=== PATIENT | female | born 1955 | race Caucasian/White ===

== ENCOUNTER → 2019-08-29 10:38 | Outpatient (CLI) | payer OTHER, SELFPAY ==
--- NOTE | 2019-08-29 | DI.US.S_ITS ---
PROCEDURE: US CAROTID DOPPLER BI INDICATIONS: LEFT BRUIT TECHNIQUE: Color and pulse Doppler interrogation was performed of both carotid systems, with image documentation and velocity measurements. COMPARISON: None. FINDINGS: Stenosis calculations are based on SRU (Society of Radiologists in Ultrasound) criteria. Right side: Brachial blood pressure: 153/79 mm Hg. Common carotid artery peak systolic velocity: 76 cm/sec. Internal carotid artery peak systolic velocity: 62 cm/sec. Internal carotid artery end diastolic velocity: 20 cm/sec. External carotid artery peak systolic velocity: 94 cm/sec. ICA/CCA peak systolic ratio: 0.8. Wahl scale imaging description: Minimal plaquing Percent internal carotid artery stenosis: No significant stenosis. Vertebral artery: Flow direction is antegrade. Left side: Brachial blood pressure: 155/73 mm Hg. Common carotid artery peak systolic velocity: 77 cm/sec. Internal carotid artery peak systolic velocity: 57 cm/sec. Internal carotid artery end diastolic velocity: 18 cm/sec. External carotid artery peak systolic velocity: 101 cm/sec. ICA/CCA peak systolic ratio: 0.7. Wahl scale imaging description: Minimal plaquing Percent internal carotid artery stenosis: No significant stenoses. Vertebral artery: Flow direction is antegrade. IMPRESSION: 1. No hemodynamic significant internal carotid artery stenosis. 2. Antegrade vertebral artery flow bilaterally. Dictated by: Daniel Grant M.D. on 08/29/2019 at 11:55 Approved by: Daniel Grant M.D. on 08/29/2019 at 11:56
== END ==
PROVIDERS: PCP Family Medicine; Visit Provider Family Medicine
DX: R09.89 Other specified symptoms and signs involving the circulatory and respiratory systems (principal)
CPT/HCPCS: 93880

== ENCOUNTER → 2019-12-06 13:40 | Outpatient (CLI) | payer OTHER, SELFPAY ==
--- NOTE | 2019-12-06 13:45 | DI.MG.S_ITS ---
BILATERAL DIGITAL SCREENING MAMMOGRAM 3D/2D WITH CAD: 12/06/2019 CLINICAL: Routine screening. Comparison is made to exams dated: 11/27/2017 mammogram, 05/20/2016 mammogram, and 01/11/2013 mammogram - [facility]. There are scattered fibroglandular elements in both breasts. Current study was also evaluated with a Computer Aided Detection (CAD) system. No significant masses, calcifications, or other findings are seen in either breast. There has been no significant interval change. IMPRESSION: NEGATIVE There is no mammographic evidence of malignancy. A 1 year screening mammogram is recommended. This exam was interpreted at Station ID: [id number]. NOTE: For mammograms, a report in lay terms will be sent to the patient. Approximately 15% of breast malignancies will not be visualized mammographically. In the management of a palpable breast mass, a negative mammogram must not discourage biopsy of a clinically suspicious lesion. Electronically Signed By: Chintan cantor/clay:12/06/2019 16:32:05 letter sent: Normal Exam ACR BI-RADS Category 1: Negative 3341F
== END ==
PROVIDERS: PCP Family Medicine; Referring Provider Family Medicine; Visit Provider Family Medicine
DX: Z12.31 Encounter for screening mammogram for malignant neoplasm of breast (principal)
CPT/HCPCS: 77063; 77067

== ENCOUNTER → 2020-02-26 09:48 | Outpatient (CLI) | payer OTHER, SELFPAY ==
[2020-02-26 10:20] LABS: BUN Creatinine Ratio 23.6 (6-22); Blood Urea Nitrogen 17 mg/dL (7-17); Estimated Glomerular Filt Rate > 60.0 mL/min (>60)
--- NOTE | 2020-02-26 11:05 | DI.CT.S_ITS ---
PROCEDURE: CT ABDOMEN PELVIS W CON INDICATIONS: Unspecified abdominal pain TECHNIQUE: After the administration of oral and intravenous contrast, 5 mm thick sections acquired from the diaphragms to the symphysis. 5 mm thick coronal and sagittal reformats were performed. For radiation dose reduction, the following was used: automated exposure control, adjustment of mA and/or kV according to patient size. COMPARISON: None. FINDINGS: Image quality: Excellent. ABDOMEN: Lung bases: Lung bases are clear. Heart size is normal. Solid organs: Liver is normal in size and enhancement. There is a small simple cyst adjacent to the anterior gallbladder fossa border within the liver parenchyma. Gallbladder appears normal. Biliary system is non-dilated. Pancreas enhances normally. Spleen is normal in size and enhancement. No adrenal nodules. Kidneys are normal in size and enhancement, without hydronephrosis. Peritoneum and bowel: Stomach, small bowel, and colon loops are normal in caliber and wall thickness. No free fluid or air. Nodes and vessels: No retroperitoneal or mesenteric adenopathy by size criteria. Centrally within the mesenteric root there is a small ovoid calcification seen on series 2 image 46 likely reflecting an old calcified lymph node . Aorta and inferior vena cava are normal in caliber. Miscellaneous: No ventral hernias. PELVIS: Genitourinary: Bladder wall thickness is normal. Prior hysterectomy. Miscellaneous: No inguinal hernias or adenopathy. Bones: No suspicious bony lesions. No vertebral body compression fractures. IMPRESSION: No underlying infection or neoplasm is found. Prior hysterectomy. Source of reported abdominal pain is not identified. Dictated by: Nick Coreas M.D. on 02/26/2020 at 11:53 Approved by: Nick Coreas M.D. on 02/26/2020 at 11:58
== END ==
PROVIDERS: PCP Family Medicine; Referring Provider Family Medicine; Visit Provider Family Medicine
DX: R10.9 Unspecified abdominal pain (principal); Z90.710 Acquired absence of both cervix and uterus
CPT/HCPCS: 36415; 74177; 82565; 84520; Q9967

== ENCOUNTER → 2020-08-11 16:10 | Outpatient (ROUT) | payer OTHER, SELFPAY ==
[2020-08-12 13:54] LABS: COVID19 Sendout Not Detected (Not Detect)
== END ==
PROVIDERS: PCP Family Medicine; Visit Provider Nurse Practitioner
DX: Z11.59 Encounter for screening for other viral diseases (principal)
CPT/HCPCS: 87635

== ENCOUNTER 2020-08-14 11:52 | Day surgery (SDC) | payer OTHER, SELFPAY ==
[2020-08-14] VITALS (8 sets, daily range): BP systolic 100–124; BP diastolic 53–81; PULSE 51–80; RESP 11–17; TEMP 36.6–37.2; O2SAT 96–99; BMI 34.8
--- NOTE | 2020-08-14 11:44 | PM.HP.1 ---
History of Present Illness History of Present Illness Date Patient Seen: 08/14/20 Time Patient Seen: 11:44 Chief complaint: SCREENING COLONOSCOPY Narrative: 64 year old female comes in today for consideration of a screening colonoscopy. Has had 4-5 lifetime colonoscopies, most recently: 03/19/10: Indicated for family history of colon polyps, family history of colon cancer, and personal history of colon polyps. Findings showed 5 small polyps between 1 and 2 mm in the rectosigmoid colon. One was snared and retrieved (hyperplastic) and others were fugurated. 08/21/2015: Indications as noted above, findings normal. There have been no lower GI symptoms suggesting disease such as change in bowel habits, bleeding, abdominal pain or anemia. As noted above, she does have a family history of colon cancer and colon polyps. Overall health issues have been stable, including no major cardiac events for at least 6 weeks. PCP: Dr. 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 Patient History Family & Social History Tobacco & Substance use: Smoking Status Former smoker Meds Home Medications and Allergies Home Medications Medication Instructions Recorded Confirmed Type CHOLECALCIFEROL (VITAMIN D) 2,000 units PO QDAY #0 02/25/13 08/05/19 History aspirin 81 mg PO QDAY #0 02/25/13 08/05/19 History atenolol 100 mg PO QDAY #0 02/25/13 08/05/19 History hydrochlorothiazide 12.5 mg PO QAM #30 02/25/13 08/05/19 Rx Allergies Allergy/AdvReac Type Severity Reaction Status Date / Time No Known Drug Allergies Allergy Unverified 08/05/19 13:26 Review of Systems Review of Systems ROS: Yes All systems reviewed with the patient and are negative except as otherwise documented Exam Narrative Exam Narrative: GENERAL: Alert and oriented, appearing stated age and in no acute distress. HEENT: Head normocephalic/atraumatic. Pupils equal, round, and reactive to light and accomodation. Extraocular muscles intact. Tympanic membranes clear. Nasal mucosa moist, septum midline. Oral mucosa moist, no lesions. Neck soft and supple, no lymphadenopathy. LUNGS: Clear to ausculation bilaterally, no wheezes, rhonchi or rales. CV: Normal S1 and S2 with regular rate and rhythm, no audible murmurs, rubs or gallops. ABDOMEN: Soft, non-tender, non-distended, no organomegaly. Positive bowel sounds. EXTREMITIES: No clubbing, cyanosis, or edema. NEURO: Cranial nerves II through XII grossly intact, no focal deficits. PSYCH: Alert and oriented x 3. SKIN: No concerning lesions. Assessment & Plan Assessment & Plan narrative: 1. History of colon polyps 2. Family history of colon cancer 3. Screening for colon cancer Plan for colonoscopy. The nature and character of the procedure as well as anticipated results were discussed. The possibility of not completing the procedure was also discussed. Possible complications including aspiration pneumonia, bleeding, perforation and reaction to medications either for sedation or preparation and missed lesions were discussed. Questions were answered and proceeding to the colonoscopy was elected. Informed consent signed. I sincerely appreciate the referral allowing me to participate in this patient's care. Please contact me with any questions or concerns.
--- NOTE | 2020-08-14 11:54 | P.OP.ENDO_ITS ---
Operative Date/Time/Diagnoses Date of procedure: 08/14/20 Procedure Notes SCOAP/Timeout: 1:03 p.m. Procedure in detail: ENDOSCOPIST: Akosua Martinez MD Sedation RN: Laci Skelton RN Sedation start time: 13:08 Sedation end time: 13:25 PROCEDURE: Colonoscopy INDICATIONS: 1. History of colon polyps 2. Family history of colon cancer 3. Screening for colon cancer MEDICATION: Levsin 0.125 mg sublingual, incremental doses of Versed and fentanyl until appropriate level sedation achieved. ASA CLASS: 2 CECAL WITHDRAWAL TIME: 10 minutes COMPLICATIONS: None. EXTENT OF PROCEDURE: Cecum. QUALITY OF PREP: Good with portions of liquid stool. PROCEDURE: Prior to insertion of the colonoscope, a digital rectal examination was accomplished with circumferential palpation of the distal rectal mucosa without significant findings being noted. The high-definition colonoscope was passed into the rectum in the usual fashion and advanced over to the cecum without difficulty. The ileocecal valve, appendiceal stoma, and medial wall all could b e inspected and no abnormalities were seen. ASCENDING COLON: As the colonoscope was withdrawn, care was taken to expose and inspect the haustral folds and no abnormalities were seen. HEPATIC FLEXURE: Normal, no polyps, diverticula or other abnormalities. TRANSVERSE COLON: Normal, no polyps, diverticula or other abnormalities. DESCENDING COLON: Normal, no polyps, diverticula or other abnormalities. SIGMOID COLON: Normal, no polyps, diverticula or other abnormalities. RECTUM: Normal. J maneuver was produced. There was no significant perianal disease. The J maneuver was broken. The remainder of the rectum was inspected and there was [] no external hemorrhoid disease. The scope was withdrawn. IMPRESSION: 1. Normal colonoscopy PLAN: 1. Secondary to family history colon cancer and personal history of colon polyps, repeat colonoscopy in 5 years. The possibility of a missed lesion including a malignancy has been discussed with the patient previously. Potential alarm symptoms have been discussed and should be reported immediately.
[2020-08-14] MEDS: HYOSCYAMINE 0.125 MG TABLET PO (12:16)
[2020-08-14] MEDS: LACTATED RINGERS 1,000 ML 200 ML IV (12:17)
[2020-08-14] MEDS: fentaNYL 250 MCG/5 ML INJ IV (13:08)
[2020-08-14] MEDS: MIDAZOLAM 5 MG/5 ML VIAL IV (13:08)
== END 2020-08-14 14:10 | disposition home or self-care (01) ==
PROVIDERS: PCP Family Medicine; Referring Provider Student in an Organized Health Care Education/Training Program; Visit Provider Student in an Organized Health Care Education/Training Program
PROC: 0DJD8ZZ Inspection of Lower Intestinal Tract, Via Natural or Artificial Opening Endoscopic (ICD-10-PCS; CPT 45378; principal; 2020-08-14 13:00)
DX: Z12.11 Encounter for screening for malignant neoplasm of colon (principal); Z86.010 Personal history of colon polyps; Z80.0 Family history of malignant neoplasm of digestive organs; I10 Essential (primary) hypertension; E78.5 Hyperlipidemia, unspecified
CPT/HCPCS: G0105; J2250; J3010

== ENCOUNTER → 2020-10-22 14:34 | Outpatient (CLI) | payer MEDICARE, SELFPAY ==
--- NOTE | 2020-10-22 | DI.RAD.S_ITS ---
PROCEDURE: XR KNEE RT 3V INDICATIONS: RIGHT KNEE PAIN TECHNIQUE: 3 views of the knee were acquired. COMPARISON: None. FINDINGS: Bones: No fracture. Scattered degenerative subchondral sclerosis and spurring. Mild narrowing of the medial lateral joint spaces. Soft tissues: Small joint effusion IMPRESSION: Mild right knee joint degeneration. Small joint effusion Dictated by: Jair Wood M.D. on 10/22/2020 at 15:17 Approved by: Jair Wood M.D. on 10/22/2020 at 15:18
== END ==
PROVIDERS: PCP Family Medicine; Referring Provider Family Medicine; Visit Provider Family Medicine
DX: M25.561 Pain in right knee (principal); M17.11 Unilateral primary osteoarthritis, right knee; M25.461 Effusion, right knee
CPT/HCPCS: 73562

== ENCOUNTER → 2020-12-11 11:43 | Outpatient (CLI) | payer MEDICARE, SELFPAY ==
--- NOTE | 2020-12-11 11:44 | DI.MG.S_ITS ---
BILATERAL DIGITAL SCREENING MAMMOGRAM 3D/2D WITH CAD: 12/11/2020 CLINICAL: Routine screening. Comparison is made to exams dated: 12/06/2019 mammogram, 11/27/2017 mammogram, and 05/20/2016 mammogram - [facility]. There are scattered fibroglandular elements in both breasts. Current study was also evaluated with a Computer Aided Detection (CAD) system. No significant masses, calcifications, or other findings are seen in either breast. There has been no significant interval change. IMPRESSION: NEGATIVE There is no mammographic evidence of malignancy. A 1 year screening mammogram is recommended. This exam was interpreted at Station ID: [id number]. NOTE: For mammograms, a report in lay terms will be sent to the patient. Approximately 15% of breast malignancies will not be visualized mammographically. In the management of a palpable breast mass, a negative mammogram must not discourage biopsy of a clinically suspicious lesion. Electronically Signed By: Chintan Junior M.D. at/clay:12/11/2020 12:37:28 letter sent: Normal Exam ACR BI-RADS Category 1: Negative 3341F
== END ==
PROVIDERS: PCP Family Medicine; Referring Provider Family Medicine; Visit Provider Family Medicine
DX: Z12.31 Encounter for screening mammogram for malignant neoplasm of breast (principal)
CPT/HCPCS: 77063; 77067

== ENCOUNTER → 2021-12-10 10:29 | Outpatient (CLI) | payer MEDICARE, SELFPAY | PROVIDERS: PCP Family Medicine; Visit Provider Nurse Practitioner Family | DX: J02.9 Acute pharyngitis, unspecified (principal) | CPT/HCPCS: 87070 ==

== ENCOUNTER → 2021-12-23 13:14 | Outpatient (CLI) | payer MEDICARE, SELFPAY ==
--- NOTE | 2021-12-23 | DI.MG.S_ITS ---
BILATERAL DIGITAL SCREENING MAMMOGRAM 3D/2D WITH CAD: 12/23/2021 CLINICAL: Routine screening. Comparison is made to exams dated: 12/11/2020 mammogram, 12/06/2019 mammogram, 11/27/2017 mammogram, 05/20/2016 mammogram, and 01/17/2013 mammogram - [facility]. There are scattered fibroglandular elements in both breasts. Current study was also evaluated with a Computer Aided Detection (CAD) system. No significant masses, calcifications, or other findings are seen in either breast. There has been no significant interval change. IMPRESSION: NEGATIVE There is no mammographic evidence of malignancy. A 1 year screening mammogram is recommended. This exam was interpreted at Station ID: [id number]. NOTE: For mammograms, a report in lay terms will be sent to the patient. Approximately 15% of breast malignancies will not be visualized mammographically. In the management of a palpable breast mass, a negative mammogram must not discourage biopsy of a clinically suspicious lesion. Electronically Signed By: Giacomo alvarez/clay:12/23/2021 14:30:25 letter sent: Normal Exam ACR BI-RADS Category 1: Negative 3341F
== END ==
PROVIDERS: PCP Family Medicine; Referring Provider Family Medicine; Visit Provider Family Medicine
DX: Z12.31 Encounter for screening mammogram for malignant neoplasm of breast (principal)
CPT/HCPCS: 77063; 77067

== ENCOUNTER → 2022-05-23 13:47 | Outpatient (CLI) | payer MEDICARE, SELFPAY | PROVIDERS: PCP Family Medicine; Referring Provider Family Medicine; Visit Provider Family Medicine | DX: Z78.0 Asymptomatic menopausal state (principal); Z13.820 Encounter for screening for osteoporosis; M85.89 Other specified disorders of bone density and structure, multiple sites; Z90.710 Acquired absence of both cervix and uterus | CPT/HCPCS: 77080 ==

== ENCOUNTER → 2022-12-12 08:14 | Outpatient (CLI) | payer MEDICARE, SELFPAY ==
--- NOTE | 2022-12-12 | DI.MRI.S_ITS ---
PROCEDURE: MR STROKE Pre- and post-contrast brain MRI, non-contrast brain MR angiogram, pre- and postcontrast neck MR angiogram INDICATIONS: Syncope and collapse/STROKE PROTOCOL TECHNIQUE: Brain: Noncontrast axial T1 spin echo, axial T2 fast spin echo, sagittal and axial FLAIR, coronal T2 fast spin echo, axial gradient echo, axial diffusion and ADC through the brain. After the administration of contrast, axial 3D VIBE of the cranial vasculature and brain. Brain MRA: Non-contrast 3-D time of flight MR angiogram, with multiple uwabvik-wnxpfkeyu-ordixaqwrj (MIP) reformats performed. Neck MRA: Axial and sagittal TruFISP through the neck. Coronal dynamic MR angiogram during administration of contrast in the arterial and venous phases, with 3-dimenstional qqyguko-vyommoyog-ytkmzkavup (MIP) reformats constructed from subtraction images. COMPARISON: [facility], , CAROTID DOPPLER , 08/29/2019, 11:03. FINDINGS: Image quality: Excellent. BRAIN: CSF spaces: Ventricles are normal in size and shape. Basal cisterns are patent. No extra-axial fluid collections. Brain: No intracranial bleeds or mass effects. Wahl-white matter interface is normal. Diffusion weighted images show no acute ischemic insults. Brainstem appears normal. Normal intravascular flow voids are present. No abnormal intracranial enhancement. Note is made of age-appropriate brain parenchymal volume loss and chronic small vessel ischemic changes. Skull and face: Calvarial marrow signal is normal. Orbits appear normal. Sinuses: Sinuses and mastoids are clear. BRAIN MR ANGIOGRAM: Anterior circulation: Intracranial internal carotid arteries are normal in size and enhancement. The flow within the paired anterior cerebral arteries is normal and symmetric. The flow within the middle cerebral arteries is normal and symmetric. The anterior communicating artery is seen. No stenoses, occlusions, or aneurysms. Posterior circulation: The left V4 segment is within normal limits. The right V4 segment largely terminates in the right posterior inferior cerebellar artery. There is a normal appearing basilar artery. There is a prominent right posterior communicating artery seen, with an accompanying diminutive right P1 segment. This is attributed to a type origin of the right posterior cerebral artery, which is considered to be a normal developmental variant of typically no clinical consequence. The flow within the posterior cerebral arteries is normal and symmetric. No stenoses, occlusions, or aneurysms. NECK MR ANGIOGRAM: Carotids: Great vessels demonstrate a conventional anatomy as they arise from the aortic arch. The origins of the common carotid arteries appear patent. The calibers and courses of both common carotid arteries are normal. The bifurcation regions appear normal bilaterally. The internal carotid arteries demonstrate normal course and caliber. Posterior circulation: The origins of the vertebral arteries appear patent. More superior portions of both vertebral arteries demonstrate normal course and caliber, and join to form a normal appearing basilar artery. Miscellaneous: Subclavian arteries appear patent. Pre-contrast images through the neck show no soft tissue abnormalities. IMPRESSION: BRAIN MRI: No masses or abnormal enhancement can be seen. No findings of acute or subacute infarction can be seen. Note is made of age-appropriate brain parenchymal volume loss and chronic small vessel ischemic changes. BRAIN MR ANGIOGRAM: No significant intracranial arterial abnormality is seen. Tqiyei-yt-Bgymzh developmental anomalies are incidentally noted. NECK MR ANGIOGRAM: Within the arteries of the neck, no hemodynamically significant stenosis can be seen. Dictated by: Jose Carroll M.D. on 12/12/2022 at 9:46 Approved by: Jose Carroll M.D. on 12/12/2022 at 9:50
== END ==
PROVIDERS: PCP Family Medicine; Referring Provider Family Medicine; Visit Provider Family Medicine
DX: R55 Syncope and collapse (principal)
CPT/HCPCS: 70548; 70553

== ENCOUNTER → 2022-12-26 12:51 | Outpatient (CLI) | payer MEDICARE, SELFPAY ==
--- NOTE | 2022-12-26 | DI.MG.S_ITS ---
BILATERAL DIGITAL SCREENING MAMMOGRAM 3D/2D WITH CAD: 12/26/2022 CLINICAL: Routine screening. Comparison is made to exams dated: 12/23/2021 mammogram, 12/11/2020 mammogram, and 12/06/2019 mammogram - [facility]. There are scattered areas of fibroglandular density in both breasts (category b / 25%-50% glandular tissue). Current study was also evaluated with a Computer Aided Detection (CAD) system. No significant masses, calcifications, or other findings are seen in either breast. There has been no significant interval change. IMPRESSION: NEGATIVE There is no mammographic evidence of malignancy. A 1 year screening mammogram is recommended. Based on the Tyrer Cuzick model (a risk assessment model) the patient's lifetime risk is 4.5% and her 10 year risk is 2.6%. According to the ACR, ACS, and NCCN guidelines, an annual breast MRI exam along with mammogram is recommended if the patient's lifetime risk is 20% or greater. This exam was interpreted at Station ID: [id number]. NOTE: For mammograms, a report in lay terms will be sent to the patient. Approximately 15% of breast malignancies will not be visualized mammographically. In the management of a palpable breast mass, a negative mammogram must not discourage biopsy of a clinically suspicious lesion. Electronically Signed By: Hayden beck/clay:12/26/2022 13:28:41 letter sent: Normal Exam ACR BI-RADS Category 1: Negative 3341F
== END ==
PROVIDERS: PCP Family Medicine; Referring Provider Family Medicine; Visit Provider Family Medicine
DX: Z12.31 Encounter for screening mammogram for malignant neoplasm of breast (principal)
CPT/HCPCS: 77063; 77067

== ENCOUNTER → 2024-01-05 13:01 | Outpatient (CLI) | payer MEDICARE, SELFPAY ==
--- NOTE | 2024-01-05 13:03 | DI.MG.S_ITS ---
BILATERAL DIGITAL SCREENING MAMMOGRAM 3D/2D WITH CAD: 01/05/2024 CLINICAL: Routine screening. Comparison is made to exams dated: 12/26/2022 mammogram, 12/23/2021 mammogram, and 12/11/2020 mammogram - [facility]. There are scattered areas of fibroglandular density in both breasts (category b / 25%-50% glandular tissue). Current study was also evaluated with a Computer Aided Detection (CAD) system. No significant masses, calcifications, or other findings are seen in either breast. There has been no significant interval change. IMPRESSION: NEGATIVE There is no mammographic evidence of malignancy. A 1 year screening mammogram is recommended. Based on the Tyrer Cuzick model (a risk assessment model) the patient's lifetime risk is 4.3% and her 10 year risk is 2.7%. According to the ACR, ACS, and NCCN guidelines, an annual breast MRI exam along with mammogram is recommended if the patient's lifetime risk is 20% or greater. This exam was interpreted at Station ID: [id number]. NOTE: For mammograms, a report in lay terms will be sent to the patient. Approximately 15% of breast malignancies will not be visualized mammographically. In the management of a palpable breast mass, a negative mammogram must not discourage biopsy of a clinically suspicious lesion. Electronically Signed By: Belkis sandoval/clay:01/05/2024 15:30:51 letter sent: Normal Exam ACR BI-RADS Category 1: Negative 3341F
== END ==
PROVIDERS: PCP Family Medicine; Referring Provider Family Medicine; Visit Provider Family Medicine
DX: Z12.31 Encounter for screening mammogram for malignant neoplasm of breast (principal); R92.323 Mammographic fibroglandular density, bilateral breasts
CPT/HCPCS: 77063; 77067

== ENCOUNTER → 2024-02-13 16:00 | Outpatient (CLI) | payer MEDICARE, SELFPAY ==
--- NOTE | 2024-02-13 17:46 | DIAB.MNT ---
Initial Diabetes Medical Nutrition Therapy Assessment Name: Aga Kurtz Date: 02/13/24 Time: 430-530p Dx: Type II Diabetes Aga presents for initial Dm visit virtually using [facility]. She agrees to receiving care virtually. Yesterday hgA1c 6.2%, same as last labs. No PCP f/u until Oct 2024. FH of DM: none (mother h/o prediabetes) Questions about how much carbs or protein for meals or snacks. Needs education about DM pathophysiology. -30# since April. Food is boring to her now, [facility] cook. Diet Recall: Wake 430-5a Bed: 8p Coffee black 8-10a: 2 eggs or avocado on toast ww 10a-12p: turkey, cheese with sliced apple 2-3p: almonds, sunflower seeds 6p: plain burger OR 1.5c pasta with sauce and salad Beverages: coffee x 2c, water 64oz, ETOH wine 2 glasses/day, occasionally sf soda Anthropometrics: Ht: Wt: Weight history: Physical Activity: stretching in the morning 20 min, 1-1.5 mi during the day (30 min) Self-Monitoring Blood Glucose: None. Diabetes Medications: None Pertinent Labs: HgA1c: 7.2% 04/2023 6.3% 07/2023 6.2% 10/2023 6.2% 01/2024 reported Past Medical History: T2Dm, HTN Nutrition Rx: Carbohydrates: Meal:30-45g Snack:15-30g Nutrition Diagnosis: - Food and Nutrition related knowledge deficit r/t no previous DM or MNT education and new dx last year aeb hgA1c and pt report- new Intervention: This participant was very receptive. Provided appropriate educational handouts. Discussed the following topics: Completed intake assessment. Discussed barriers to care. Pathophysiology of T2DM HgA1c, its correlation to blood glucose numbers, and rationale for goal Brief overview of potential for SMBG Plate Method, impact of macronutrients on blood sugar, meal timing, carbohydrate counting, pairing macronutrients and spreading out carbohydrates for better blood glucose management Recommended servings for carbohydrates at meals and snacks Heart health nutrition Brainstormed appropriate meal plan based on food preferences Role of physical activity Brief eating out tips Hydration Created SMART goals for patient self-care and success. Goals: Pair CHO and protein Keep Cho to 1 c at meals Try to eat q 3-4 hours Next visit discuss label reading Follow-up: PRICILLA BASS follow-up in 1 month Bettie Talley RDN, [facility] Certified Diabetes Care and Tractor Mechanic Apprentice P: [phone] Thank you for this referral
== END ==
PROVIDERS: PCP Family Medicine; Referring Provider Family Medicine
DX: E11.9 Type 2 diabetes mellitus without complications (principal); Z71.3 Dietary counseling and surveillance
CPT/HCPCS: 97802

== ENCOUNTER → 2024-04-17 11:23 | Outpatient (CLI) | payer MEDICARE, SELFPAY ==
--- NOTE | 2024-05-07 11:25 | DIAB.MNTFU ---
Follow-up Diabetes Medical Nutrition Therapy Assessment Name: Aga Kurtz Date: 04/17/24 Time: 335-450 Dx: Type II Diabetes Aga presents for DM follow-up virtually using Portal. No sugar cravings anymore. Next hga1c in July No SMBG Pairing CHO and protein Choosing more fish over beef Eating salads and roasted veggies Feeling more comfortable food choices Avoiding bread Offered label reading education that she had previously wanted to review today, but states she feels things are going well and she does not need this at this time. Diet Recall: Wake 430-5 Coffee black B: fruit, yogurt smoothie with protein powder Sn: handful berries and nuts L: Tuna on lettuce +/- carrots and pb D: Salad, other veggie, burger roger or salmon with barton Occasional pasta, ie spaghetti or pasta salad x 1.5c ETOH: 2 glasses wine Water: +/-64oz Coffee Physical Activity: slowed down due to ?frozen shoulder?. In PT 1x per week. 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 Missing her walks, but plans to get back to it. . Self-Monitoring Blood Glucose: None. Diabetes Medications: None Pertinent Labs: HgA1c: 7.2% 04/2023 6.3% 07/2023 6.2% 10/2023 6.2% 01/2024 reported Past Medical History: T2Dm, HTN Nutrition Rx: Carbohydrates: Meal:30-45g Snack:15-30g Nutrition Diagnosis: - Food and Nutrition related knowledge deficit r/t no previous DM or MNT education and new dx last year aeb hgA1c and pt report- new Intervention: This participant was very receptive. Provided appropriate educational handouts. Discussed the following topics: Completed intake assessment. Discussed barriers to care. Review of diet changes and recs for CHO portions Discussed importance of sustainability of diet changes. Reviewed ETOH recs Created SMART goals for patient self-care and success. Goals: Pair CHO and protein- met Keep Cho to 1 c at meals - in progress Try to eat q 3-4 hours - met Follow-up: PRICILLA BASS follow-up prn per pt request. States she will call or message if needed. Bettie Talley, PRICILLA, KALI Certified Diabetes Care and [employer] Out [employer] Operator P: [phone] Thank you for this referral
== END ==
LOC: DIET 05-07 11:23
PROVIDERS: PCP Family Medicine; Referring Provider Family Medicine
DX: E11.9 Type 2 diabetes mellitus without complications (principal); Z71.3 Dietary counseling and surveillance
CPT/HCPCS: 97803

== ENCOUNTER → 2025-01-16 13:50 | Outpatient (CLI) | payer OTHER, SELFPAY ==
--- NOTE | 2025-01-16 13:52 | DI.MG.S_ITS ---
MM screening mammo BI: 01/16/2025. BI-RADS: 1 CLINICAL: 69-year old female for bilateral screening mammogram. Tyrer-Cuzick lifetime risk of 2.7%. No personal or first-degree family history of breast cancer. PRIOR EXAMS 01/05/2024, 12/26/2022, 12/23/2021, 12/11/2020, 12/06/2019, 11/27/2017, 05/20/2016. MAMMOGRAPHY TECHNIQUE: 2D and 3D (tomosynthesis) digital mammographic views obtained, with additional images as needed for full coverage. Current study was also evaluated with a Computer Aided Detection (CAD) system. DENSITY B. There are scattered areas of fibroglandular density. MAMMOGRAPHY FINDINGS Bilateral: No suspicious mass, asymmetry, microcalcification, or other abnormality seen. No significant change from comparison. IMPRESSION: * No evidence of malignancy. RECOMMENDATIONS Bilateral * Annual screening mammography. OVERALL ASSESSMENT CATEGORY BI-RADS-1: Negative. The [employer] recommends annual screening mammography beginning at age 40 for women with average risk of breast cancer. ELECTRONICALLY SIGNED: Jane Medellin M.D. on 01/16/2025 at 04:38:31 PM PT Interpreting Station ID: [id number]
== END ==
PROVIDERS: PCP Family Medicine; Referring Provider Family Medicine; Visit Provider Family Medicine
DX: Z12.31 Encounter for screening mammogram for malignant neoplasm of breast (principal)
CPT/HCPCS: 77063; 77067

== ENCOUNTER → 2025-01-24 08:10 | Outpatient (ROUT) | payer OTHER, SELFPAY ==
[2025-01-24 08:22] LABS: Prothrombin Time 11.7 SECONDS (9.4-12.5)
== END ==
PROVIDERS: PCP Family Medicine; Visit Provider Family Medicine
DX: Z01.818 Encounter for other preprocedural examination (principal); M25.361 Other instability, right knee
CPT/HCPCS: 85610

== ENCOUNTER 2025-07-07 07:30 | Outpatient (RCR) | payer OTHER, SELFPAY ==
--- NOTE | 2025-04-15 18:01 | PT.OIE ---
Addendum entered and electronically signed by Aissatou Maritnez, PT 04/15/25 18:12: PT direct supervision and direction to student PT Natalie Crowder throughout session Original Note: Current Diagnoses Unilateral primary osteoarthritis, right knee (04/15/25) Osteoarthritis of knee, unspecified (04/15/25) Visit Care Team Role Provider Type Emerson Boyd MD Family Provider Physician Primary Care Provider Specialty: Family Practice Address: [facility], [address], [place], [address] Email: [email or web address] Esvin Lopez MD Attending Provider Non-Staff Referring Provider Specialty: Orthopedic Surgery Address: [address] [place] [address], [address], [place], [address] Email: Physical Therapy Initial Evaluation PT-OP-A Visit Information Start: 04/14/25 13:32 Freq: Status: Active Protocol: Document 04/15/25 11:29 GG (Rec: 04/15/25 12:41 GG [id number]) Out-Patient Physical Therapy Visit Information Visit Information Visit Type Initial Evaluation Visit Start Time 11:34 Visit Stop Time 12:24 Visit Number 1 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 Initially had extension Condition brace for 1 week. Used walker after and will use it occ when going long distances, but uses a cane in home and walking short distances. Travels from [facility]. Currently using Tylenol and has been doing so the past 2 days. Has an ice machine that has been really helpful . Used a CPM machine for the first 2 weeks following and says she could get to 110 deg. Has a friend in town to help out for another couple weeks. She also lives w / her but he is unable to help w/ heavy lifting . 13 stairs inside, 3-4 at entryway, bedroom/shower in basement. Notes that she has difficulty stepping into/ out of tub shower and tried to support using shower charley . Treatment Goals Patient/Caregiver walking, navigating terrain around house, getting into/ Goals out of tub shower PT-OP-C Subjective Start: 04/14/25 13:32 Freq: Status: Active Protocol: Document 04/15/25 11:29 GG (Rec: 04/15/25 12:41 GG [id number]) Patient Questionnaires Lower Extremity Functional Scale LEFS Score 38 PT-OP-J Posture/Palpation/Skin Start: 04/14/25 13:32 Freq: Status: Active Protocol: Document 04/15/25 11:29 GG (Rec: 04/15/25 12:41 GG [id number]) Skin Assessment Other Assessments Skin Assessment vertical scar along anterior R knee about 10 and Comments another 1/2 scar just inferior to tibial tuberosity. healing better. some swelling present around knee and into ankle. some bruising at inferior medial knee, medial ankle, anterior/medial hip PT-OP-K Range of Motion Start: 04/14/25 13:32 Freq: Status: Active Protocol: Document 04/15/25 11:29 GG (Rec: 04/15/25 12:41 GG [id number]) Knee Goniometric Range of Motion Knee Right Flexion Active ( 95 degrees) Flexion Passive ( 98 degrees) Extension Active ( 4 degrees) Comments lacking extension to neutral PT-OP-M Strength Start: 04/14/25 13:32 Freq: Status: Active Protocol: Document 04/15/25 11:29 GG (Rec: 04/15/25 12:41 GG [id number]) Hip Strength Hip Manual Muscle Testing Right Flexion (L2) 4 Good Abduction 4 Good Adduction 3 Fair External Rotation 4+ Good+ Internal Rotation 4+ Good+ Comments extension n/t positioning Left Flexion (L2) 4+ Good+ Abduction 4- Good- Adduction 4 Good External Rotation 4+ Good+ Internal Rotation 5 Normal Comments extension n/t positioning Knee Strength Knee Manual Muscle Testing Right Flexion (S2) 3+ Fair+ Extension (L3) 4 Good Comments pain w/ extension Left Flexion (S2) 5 Normal Extension (L3) 5 Normal Ankle/Foot Strength Ankle and Foot Manual Muscle Testing Right Dorsiflexion (L4) 4+ Good+ Left Dorsiflexion (L4) 5 Normal PT-OP-Q Treatments Start: 04/14/25 13:32 Freq: Status: Active Protocol: Document 04/15/25 11:29 GG (Rec: 04/15/25 13:33 GG [id number]) Therapeutic Exercises Supine Exercises SAQ Supine Exercise Name on foam roller Side right Reps/Minutes 5x stretch Supine Exercise Name knee extension stretch; foot on towel w/ quad set Side right Reps/Minutes 20s heel slides Side right Reps/Minutes 5x w/ 5s hold at top SLR Supine Exercise Name hold quad set throughout Side right Reps/Minutes 5x ankle pumps Reps/Minutes 15x Sitting Exercises knee flexion Sitting Exercise AAROM w/ other foot Name Reps/Minutes 3x6s hold sliding fwd Sitting Exercise passive knee flexion by scooting fwd w/ feet on ground Name Reps/Minutes 3x6s hold Standing Exercises TKE Resistance L1 band PT-OP-T Assessment and Plan Start: 04/14/25 13:32 Freq: Status: Active Protocol: Document 04/15/25 11:29 GG (Rec: 04/15/25 12:41 GG [id number]) Physical Therapy Assessment Rehab Potential Rehabilitation Good Potential Evaluation Complexity Number of Personal 3 or More Factors/ Comorbidities Number of Body 3 Systems Impaired Clinical Evolving Presentation at Evaluation Impairments Impairments Activity Tolerance,Balance,Coordination,Functional Activities,Functional Mobility,Gait,Pain,ROM,Soft Tissue Mobility,Strength Goals activity Short Term Goal (STG Pt will be able to walk w/ her normal gait pattern w/o ) AD. STG Duration 05/30/25 Penitentiary Goal (LTG) Pt will be able to walk at least 7000 steps/day to match prior level of function. Pt will be able to walk on uneven terrain w/o pain exceeding 2/10. LTG Duration 07/08/25 strength Short Term Goal (STG Pt will be independent in HEP. ) STG Duration 05/30/25 Cna Caregiver Goal (LTG) Pt will score at least a 4+/5 on BLE MMTs for improved strength and ability to walk. LTG Duration 07/08/25 ROM Short Term Goal (STG Pt will measure at least 115 deg of R knee flexion for ) better ability to step into and out of the tub shower. STG Duration 05/30/25 Penitentiary Goal (LTG) Pt will measure at least 130 deg of R knee flexion for better ability to use stairs and biking. LTG Duration 07/08/25 LEFS Impairment 38 Short Term Goal (STG Pt will score at least a 50 on LEFS to show improved ) function. STG Duration 05/30/25 Penitentiary Goal (LTG) Pt will score at least a 60 on LEFS to show improved function. LTG Duration 07/08/25 Assessment Summary Assessment Aga presents to PT s/p R TKA with associated pain, reduced ROM and strength. Pt would benefit from skilled PT to improve ROM and strength while also reducing pain so the patient can better perform functional activities including self-hygiene, navigating stairs and difficult terrain. Physical Therapy Plan Frequency and Duration Frequency of 1-2x/week Treatment Duration of 12 treatment (weeks) Plan of Care Start 04/15/25 Date Plan of Care End 07/08/25 Date Therapeutic Interventions Therapeutic Balance Training,Coordination Training,Gait Training, Interventions Home Exercise Program,Joint Mobilizations,Manual Therapy,Neuromuscular Re-education,Patient/Caregiver Education,Self-Care/Home Management,Soft Tissue Mobilization,Taping,Therapeutic Activities,Therapeutic Exercises Modalities Cold Pack/Ice Massage,Electric Stimulation,Infrared Therapy Next Visit Focus/Plan Next Note Type Treatment Note Next Visit Plan cont w/ HEP and progress as able, manual for swelling, knee ROM, try stepper
--- NOTE | 2025-04-15 18:02 | PT.OPPOC ---
Physical, Occupational & Speech Therapy At [facility] Current Diagnoses Unilateral primary osteoarthritis, right knee (04/15/25) Osteoarthritis of knee, unspecified (04/15/25) Visit Care Team Role Provider Type Emerson Boyd MD Family Provider Physician Primary Care Provider Specialty: Family Practice Address: [facility], [address], [place], [address] Email: [email or web address] Esvin Lopez MD Attending Provider Non-Staff Referring Provider Specialty: Orthopedic Surgery Address: [address] [place] [address], [address], [place], [address] Email: Plan Of Care PT-OP-B Current Condition Start: 04/14/25 13:32 Freq: Status: Active Protocol: Document 04/15/25 11:29 GG (Rec: 04/15/25 12:41 GG [id number]) Current Condition History of Current Condition Onset Date 03/27/25 Current Complaints R knee pain; s/p TKA History of Current No complications from surgery. Initially had extension Condition brace for 1 week. Used walker after and will use it occ when going long distances, but uses a cane in home and walking short distances. Travels from [facility]. Currently using Tylenol and has been doing so the past 2 days. Has an ice machine that has been really helpful . Used a CPM machine for the first 2 weeks following and says she could get to 110 deg. Has a friend in town to help out for another couple weeks. She also lives w / her but he is unable to help w/ heavy lifting . 13 stairs inside, 3-4 at entryway, bedroom/shower in basement. Notes that she has difficulty stepping into/ out of tub shower and tried to support using shower charley . Treatment Goals Patient/Caregiver walking, navigating terrain around house, getting into/ Goals out of tub shower PT-OP-T Assessment and Plan Start: 04/14/25 13:32 Freq: Status: Active Protocol: Document 04/15/25 11:29 GG (Rec: 04/15/25 12:41 GG [id number]) Physical Therapy Assessment Rehab Potential Rehabilitation Good Potential Evaluation Complexity Number of Personal 3 or More Factors/ Comorbidities Number of Body 3 Systems Impaired Clinical Evolving Presentation at Evaluation Impairments Impairments Activity Tolerance,Balance,Coordination,Functional Activities,Functional Mobility,Gait,Pain,ROM,Soft Tissue Mobility,Strength Goals activity Short Term Goal (STG Pt will be able to walk w/ her normal gait pattern w/o ) AD. STG Duration 05/30/25 Correction Goal (LTG) Pt will be able to walk at least 7000 steps/day to match prior level of function. Pt will be able to walk on uneven terrain w/o pain exceeding 2/10. LTG Duration 07/08/25 strength Short Term Goal (STG Pt will be independent in HEP. ) STG Duration 05/30/25 Correction Goal (LTG) Pt will score at least a 4+/5 on BLE MMTs for improved strength and ability to walk. LTG Duration 07/08/25 ROM Short Term Goal (STG Pt will measure at least 115 deg of R knee flexion for ) better ability to step into and out of the tub shower. STG Duration 05/30/25 Correction Goal (LTG) Pt will measure at least 130 deg of R knee flexion for better ability to use stairs and biking. LTG Duration 07/08/25 LEFS Impairment 38 Short Term Goal (STG Pt will score at least a 50 on LEFS to show improved ) function. STG Duration 05/30/25 Correction Goal (LTG) Pt will score at least a 60 on LEFS to show improved function. LTG Duration 07/08/25 Assessment Summary Assessment Aag presents to PT s/p R TKA with associated pain, reduced ROM and strength. Pt would benefit from skilled PT to improve ROM and strength while also reducing pain so the patient can better perform functional activities including self-hygiene, navigating stairs and difficult terrain. Physical Therapy Plan Frequency and Duration Frequency of 1-2x/week Treatment Duration of 12 treatment (weeks) Plan of Care Start 04/15/25 Date Plan of Care End 07/08/25 Date Therapeutic Interventions Therapeutic Balance Training,Coordination Training,Gait Training, Interventions Home Exercise Program,Joint Mobilizations,Manual Therapy,Neuromuscular Re-education,Patient/Caregiver Education,Self-Care/Home Management,Soft Tissue Mobilization,Taping,Therapeutic Activities,Therapeutic Exercises Modalities Cold Pack/Ice Massage,Electric Stimulation,Infrared Therapy Next Visit Focus/Plan Next Note Type Treatment Note Next Visit Plan cont w/ HEP and progress as able, manual for swelling, knee ROM, try stepper Plan of Care Dates Plan of Care Start Date 04/15/25 Plan of Care End Date 07/08/25 Electronically Signed by: Natalie Crowder 04/15/25 4732 If you are in agreement with this Plan of Care, please return a signed and dated copy. I have reviewed this Plan of Care and certify that the skilled therapy services above are required to meet the patient?s needs. Physician Signature Date Printed Name and Credentials Clinical Instructor Signature Printed Name and Credentials
--- NOTE | 2025-04-21 13:51 | PT.OTN ---
Current Diagnoses Unilateral primary osteoarthritis, right knee (04/21/25) Osteoarthritis of knee, unspecified (04/21/25) Physical Therapy Treatment Note PT-OP-A Visit Information Start: 04/14/25 13:32 Freq: Status: Active Protocol: Document 04/21/25 13:02 SP (Rec: 04/21/25 13:51 SP [id number]) Out-Patient Physical Therapy Visit Information Visit Information Visit Type Treatment Note Visit Start Time 13:02 Visit Stop Time 13:51 Visit Number 2 Number of TOOL PROGRAMMER Visits 1 Precautions Precautions s/p TKA 03/27/25 PT-OP-B Current Condition Start: 04/14/25 13:32 Freq: Status: Active Protocol: Document 04/15/25 11:29 GG (Rec: 04/15/25 12:41 GG [id number]) Current Condition History of Current Condition Onset Date 03/27/25 Current Complaints R knee pain; s/p TKA History of Current No complications from surgery. Initially had extension Condition brace for 1 week. Used walker after and will use it occ when going long distances, but uses a cane in home and walking short distances. Travels from [facility]. Currently using Tylenol and has been doing so the past 2 days. Has an ice machine that has been really helpful . Used a CPM machine for the first 2 weeks following and says she could get to 110 deg. Has a friend in town to help out for another couple weeks. She also lives w / her but he is unable to help w/ heavy lifting . 13 stairs inside, 3-4 at entryway, bedroom/shower in basement. Notes that she has difficulty stepping into/ out of tub shower and tried to support using shower charley . Treatment Goals Patient/Caregiver walking, navigating terrain around house, getting into/ Goals out of tub shower PT-OP-C Subjective Start: 04/14/25 13:32 Freq: Status: Active Protocol: Document 04/21/25 13:02 SP (Rec: 04/21/25 13:51 SP [id number]) OP-PT Subjective Patient Comments Patient Comments Pt reports using her ice machine, post op HEP. Arrived with use SPC in LUE good patterning. PT-OP-J Posture/Palpation/Skin Start: 04/14/25 13:32 Freq: Status: Active Protocol: Document 04/15/25 11:29 GG (Rec: 04/15/25 12:41 GG [id number]) Skin Assessment Other Assessments Skin Assessment vertical scar along anterior R knee about 10 and Comments another 1/2 scar just inferior to tibial tuberosity. healing better. some swelling present around knee and into ankle. some bruising at inferior medial knee, medial ankle, anterior/medial hip PT-OP-K Range of Motion Start: 04/14/25 13:32 Freq: Status: Active Protocol: Document 04/15/25 11:29 GG (Rec: 04/15/25 12:41 GG [id number]) Knee Goniometric Range of Motion Knee Right Flexion Active ( 95 degrees) Flexion Passive ( 98 degrees) Extension Active ( 4 degrees) Comments lacking extension to neutral PT-OP-M Strength Start: 04/14/25 13:32 Freq: Status: Active Protocol: Document 04/15/25 11:29 GG (Rec: 04/15/25 12:41 GG [id number]) Hip Strength Hip Manual Muscle Testing Right Flexion (L2) 4 Good Abduction 4 Good Adduction 3 Fair External Rotation 4+ Good+ Internal Rotation 4+ Good+ Comments extension n/t positioning Left Flexion (L2) 4+ Good+ Abduction 4- Good- Adduction 4 Good External Rotation 4+ Good+ Internal Rotation 5 Normal Comments extension n/t positioning Knee Strength Knee Manual Muscle Testing Right Flexion (S2) 3+ Fair+ Extension (L3) 4 Good Comments pain w/ extension Left Flexion (S2) 5 Normal Extension (L3) 5 Normal Ankle/Foot Strength Ankle and Foot Manual Muscle Testing Right Dorsiflexion (L4) 4+ Good+ Left Dorsiflexion (L4) 5 Normal PT-OP-Q Treatments Start: 04/14/25 13:32 Freq: Status: Active Protocol: Document 04/21/25 13:02 SP (Rec: 04/21/25 13:51 SP [id number]) Therapeutic Exercises Supine Exercises QS Side right Reps/Minutes 10x10 SAQ Supine Exercise Name on foam roller Side right Reps/Minutes 5 SH x10 heel slides Supine Exercise Name >90 deg with reps Side right Resistance A>AAROM strap assist on foot Reps/Minutes 10 reps, pnfree range Comments good feedback no pain and better range/ less discomfort post manual Standing Exercises heel raises Standing Exercise verbal review has performed for a while. Name Side bilateral Equipment Used table contact Reps/Minutes 15 reps Comments cues even BLE weight Other Exercises self STMs Other Exercise Name R quad, HS, adductor, ITB, calf Side right Equipment Used rolling pin Comments manual and ed use of rolling pin seated for circulation & gentle press mass Gait Training Gait Activity SPC Description arrival /through back clinic Comments in LUE 2pt with RLE- little trunk lateral lean into SPC in LUE support needed B Trek Poles Description 2 pt gait: forward and brief backward. Device Used B trek poles, measured height elbow flexion 90deg vs SPC Level of Assistance S>Mod I Distance/Duration around gym Treatment Focus proper patterning, midline posture, R knee gait flex/ ext gait phases Comments instruction 2pt gait, cues for patterning and little wider than side BLEs for stability midline, slower pacing, heel reach into advancement heel strike encourage functional extension. Manual Therapy Treatment Consent Patient gave verbal Yes consent for manual treatment Soft Tissue Mobilization Scar mobility Body Location R knee Body Position Supine Comments scar: med/lat supporting lateral scar ed self is doing, towel roll under knee Retrograde Massage Body Location R knee Mobilization Type Instrument Assisted,Myofascial Release Body Position Hooklying Comments Myofascial glides: manual knee extended and flexed, ed sitting: self use rolling pin for circulation and decrease muscle tension-good feedback during manual R knee: swelling: Mid patella 75cm, 51.65cm, 44cm- after Self-Care/Home Management Treatment Education Patient Education Safety Other Education Education self massage use hands/rolling pin if beneficial circulation and tension reduction. Use strap on foot self AAROM flexion. 2 pt gait with Zackary trek poles for midline and normalize gait and posture especially over uneven driveway/roads short distances at home on [facility]. Much better midline stability and quality gait. Uses circulating cold pack machine. PT-OP-R Modalities Start: 04/14/25 13:32 Freq: Status: Active Protocol: Document 04/21/25 13:02 SP (Rec: 04/21/25 13:51 SP [id number]) Hot Pack/Cold Pack Treatment R knee Patient Position Supine Patient Tolerance Good Comments towel roll under knee- 5 min end tx PT-OP-T Assessment and Plan Start: 04/14/25 13:32 Freq: Status: Active Protocol: Document 04/21/25 13:02 SP (Rec: 04/21/25 13:51 SP [id number]) Physical Therapy Assessment Goals activity Short Term Goal (STG Pt will be able to walk w/ her normal gait pattern w/o ) AD. STG Duration 05/30/25 Janitor Head Goal (LTG) Pt will be able to walk at least 7000 steps/day to match prior level of function. Pt will be able to walk on uneven terrain w/o pain exceeding 2/10. LTG Duration 07/08/25 strength Short Term Goal (STG Pt will be independent in HEP. ) STG Duration 05/30/25 Janitor Head Goal (LTG) Pt will score at least a 4+/5 on BLE MMTs for improved strength and ability to walk. LTG Duration 07/08/25 ROM Short Term Goal (STG Pt will measure at least 115 deg of R knee flexion for ) better ability to step into and out of the tub shower. STG Duration 05/30/25 Janitor Head Goal (LTG) Pt will measure at least 130 deg of R knee flexion for better ability to use stairs and biking. LTG Duration 07/08/25 LEFS Impairment 38 Short Term Goal (STG Pt will score at least a 50 on LEFS to show improved ) function. STG Duration 05/30/25 Senior Care Goal (LTG) Pt will score at least a 60 on LEFS to show improved function. LTG Duration 07/08/25 Assessment Summary Assessment Pt improved AAROM approx 2-100 deg quad set to AROM, maybe 110 deg AAROM with strap on foot. Ed with manual myofascial glides R knee for circulation and support AROM, instruction self use of strap on foot help progress ROM and massage hands and rolling pin R flexion mobility. Improved midline stability instruction 2 pt gait with Zackary trek poles to help her over home uneven driveway and near boat launch [place] lives on. Cues for TKE heel strike reach out front for extension emphasis functional mobility. Physical Therapy Plan Frequency and Duration Frequency of 1-2x/week Treatment Duration of 12 treatment (weeks) Plan of Care Start 04/15/25 Date Plan of Care End 07/08/25 Date Therapeutic Interventions Therapeutic Balance Training,Coordination Training,Gait Training, Interventions Home Exercise Program,Joint Mobilizations,Manual Therapy,Neuromuscular Re-education,Patient/Caregiver Education,Self-Care/Home Management,Soft Tissue Mobilization,Taping,Therapeutic Activities,Therapeutic Exercises Modalities Cold Pack/Ice Massage,Electric Stimulation,Infrared Therapy Next Visit Focus/Plan Next Note Type Treatment Note Next Visit Plan Recheck circumference swelling reduction progression, gait zackary trek poles. POC: cont w/ HEP and progress as able, manual for swelling, knee ROM, try stepper
--- NOTE | 2025-04-24 14:00 | PT.OTN ---
Current Diagnoses Unilateral primary osteoarthritis, right knee (04/24/25) Osteoarthritis of knee, unspecified (04/24/25) Physical Therapy Treatment Note PT-OP-A Visit Information Start: 04/14/25 13:32 Freq: Status: Active Protocol: Document 04/24/25 13:02 SP (Rec: 04/24/25 13:09 SP [id number]) Out-Patient Physical Therapy Visit Information Visit Information Visit Type Treatment Note Visit Note PN 05/16/25 Visit Start Time 13:02 Visit Stop Time 14:00 Visit Number 3 Number of FILLER SIFTER HELPER Visits 2 Precautions Precautions s/p TKA 03/27/25 PT-OP-B Current Condition Start: 04/14/25 13:32 Freq: Status: Active Protocol: Document 04/15/25 11:29 GG (Rec: 04/15/25 12:41 GG [id number]) Current Condition History of Current Condition Onset Date 03/27/25 Current Complaints R knee pain; s/p TKA History of Current No complications from surgery. Initially had extension Condition brace for 1 week. Used walker after and will use it occ when going long distances, but uses a cane in home and walking short distances. Travels from [facility]. Currently using Tylenol and has been doing so the past 2 days. Has an ice machine that has been really helpful . Used a CPM machine for the first 2 weeks following and says she could get to 110 deg. Has a friend in town to help out for another couple weeks. She also lives w / her but he is unable to help w/ heavy lifting . 13 stairs inside, 3-4 at entryway, bedroom/shower in basement. Notes that she has difficulty stepping into/ out of tub shower and tried to support using shower charley . Treatment Goals Patient/Caregiver walking, navigating terrain around house, getting into/ Goals out of tub shower PT-OP-C Subjective Start: 04/14/25 13:32 Freq: Status: Active Protocol: Document 04/24/25 13:02 SP (Rec: 04/24/25 13:09 SP [id number]) OP-PT Subjective Patient Comments Patient Comments Pt reports acquired trek poles wants to measure for self use. Hopes can start recumbent bike and which 1 suggest if can get 1 for home. 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 Pt reports still has to ER R hip with eccentric heel slide due to doesn' t have the control. PT-OP-J Posture/Palpation/Skin Start: 04/14/25 13:32 Freq: Status: Active Protocol: Document 04/15/25 11:29 GG (Rec: 04/15/25 12:41 GG [id number]) Skin Assessment Other Assessments Skin Assessment vertical scar along anterior R knee about 10 and Comments another 1/2 scar just inferior to tibial tuberosity. healing better. some swelling present around knee and into ankle. some bruising at inferior medial knee, medial ankle, anterior/medial hip PT-OP-K Range of Motion Start: 04/14/25 13:32 Freq: Status: Active Protocol: Document 04/15/25 11:29 GG (Rec: 04/15/25 12:41 GG [id number]) Knee Goniometric Range of Motion Knee Right Flexion Active ( 95 degrees) Flexion Passive ( 98 degrees) Extension Active ( 4 degrees) Comments lacking extension to neutral PT-OP-M Strength Start: 04/14/25 13:32 Freq: Status: Active Protocol: Document 04/15/25 11:29 GG (Rec: 04/15/25 12:41 GG [id number]) Hip Strength Hip Manual Muscle Testing Right Flexion (L2) 4 Good Abduction 4 Good Adduction 3 Fair External Rotation 4+ Good+ Internal Rotation 4+ Good+ Comments extension n/t positioning Left Flexion (L2) 4+ Good+ Abduction 4- Good- Adduction 4 Good External Rotation 4+ Good+ Internal Rotation 5 Normal Comments extension n/t positioning Knee Strength Knee Manual Muscle Testing Right Flexion (S2) 3+ Fair+ Extension (L3) 4 Good Comments pain w/ extension Left Flexion (S2) 5 Normal Extension (L3) 5 Normal Ankle/Foot Strength Ankle and Foot Manual Muscle Testing Right Dorsiflexion (L4) 4+ Good+ Left Dorsiflexion (L4) 5 Normal PT-OP-Q Treatments Start: 04/14/25 13:32 Freq: Status: Active Protocol: Document 04/24/25 13:02 SP (Rec: 04/24/25 13:10 SP [id number]) Cardio Equipment Recumbent Elliptical (Biodex) Duration (Minutes) 3 Resistance 3 Seat Position 10 Other BLEs Recumbent Bicycle Duration (Minutes) 5 Resistance 4 Seat Position 11> 10 last min Other forward and backward revolutions- cued slow Therapeutic Exercises Supine Exercises QS Side right Reps/Minutes 5sx5 SAQ Supine Exercise Name on foam roller Side right Reps/Minutes 5 SH x10 heel slides Supine Exercise Name >90 deg with reps Side right Resistance A>AAROM strap assist on foot Reps/Minutes 10 reps, pnfree range Comments good feedback no pain and better range/ less discomfort post manual SLR Supine Exercise Name challenging, at least 2 deg lag Side right Reps/Minutes 5x Comments cued hold quad set throughout, added hip IR & DF ( strength ecc heel slide) Sidelying Exercises Adduction Sidelying Exercise Trialed in PT (didn't tell her had to do home but can Name help ecc heel slide) Side right Resistance LLE bent Equipment Used R SL Reps/Minutes 5 reps before tires Comments cued DF neutral, TKE, lift if can Standing Exercises rich stepping Standing Exercise Forward (reciprocal) and Lateral Stepping Name Side bilateral Equipment Used 6 hurdles, rail support Reps/Minutes 2 laps each direction Comments cued knee/hip flexion lead and trail LE, discourage circumduction trailing heel raises Standing Exercise reviewed Name Side bilateral Equipment Used table contact Reps/Minutes 15 reps Comments cues even BLE weight TKE Standing Exercise reviewed Name Side right Resistance L3 band latex free (available band) Reps/Minutes 10 reps, 5 SH Comments cued slow eccentric control- good response better resistance Gait Training Gait Activity no AD Description front mirror:fwd/bwd Device Used 0 Level of Assistance Mod I Treatment Focus trunk midline, TA, even WB and jorge Comments improved normalize gait corrections SPC Comments improved more midline and light LUE WB on SPC arrival B Trek Poles Description 2 pt gait Device Used B trek poles, measured height elbow flexion 90deg vs SPC Level of Assistance S>Mod I Distance/Duration 170 ft around clinic Treatment Focus proper patterning, midline posture, R knee gait flex/ ext gait phases Comments measured self proper fit poles, instruction 2pt gait- good midline patterning and trunk Manual Therapy Treatment Consent Patient gave verbal Yes consent for manual treatment Soft Tissue Mobilization Scar mobility Body Location R knee Body Position Supine Comments scar: med/lat supporting lateral scar ed self is doing, towel roll under knee Retrograde Massage Body Location R knee Mobilization Type Myofascial Release,Rolling Body Position Hooklying over towel Comments Myofascial glides: manual knee extended and flexed. No circumference measurements or AROM today. Self-Care/Home Management Treatment Education Patient Education Body Mechanics,Fall Risk,Joint Protection,Pain Management,Posture,Safety Other Education Instruction with pt and friend that helps transport her from [facility], fabian fit for recumbent bike today for carryover home bike set up, slight R knee bend initially, then little closer for support ROM if tolerated, no resistance, approx 8-10 min max at this time 1xday. PT-OP-R Modalities Start: 04/14/25 13:32 Freq: Status: Active Protocol: Document 04/21/25 13:02 SP (Rec: 04/21/25 13:51 SP [id number]) Hot Pack/Cold Pack Treatment R knee Patient Position Supine Patient Tolerance Good Comments towel roll under knee- 5 min end tx PT-OP-T Assessment and Plan Start: 04/14/25 13:32 Freq: Status: Active Protocol: Document 04/24/25 13:02 SP (Rec: 04/24/25 13:09 SP [id number]) Physical Therapy Assessment Goals activity Short Term Goal (STG Pt will be able to walk w/ her normal gait pattern w/o ) AD. STG Duration 05/30/25 House Painting Instructor Goal (LTG) Pt will be able to walk at least 7000 steps/day to match prior level of function. Pt will be able to walk on uneven terrain w/o pain exceeding 2/10. LTG Duration 07/08/25 strength Short Term Goal (STG Pt will be independent in HEP. ) STG Duration 05/30/25 Halfway Goal (LTG) Pt will score at least a 4+/5 on BLE MMTs for improved strength and ability to walk. LTG Duration 07/08/25 ROM Short Term Goal (STG Pt will measure at least 115 deg of R knee flexion for ) better ability to step into and out of the tub shower. STG Duration 05/30/25 House Painting Instructor Goal (LTG) Pt will measure at least 130 deg of R knee flexion for better ability to use stairs and biking. LTG Duration 07/08/25 LEFS Impairment 38 Short Term Goal (STG Pt will score at least a 50 on LEFS to show improved ) function. STG Duration 05/30/25 House Painting Instructor Goal (LTG) Pt will score at least a 60 on LEFS to show improved function. LTG Duration 07/08/25 Assessment Summary Assessment Pt good response to initiated Nustep, trialed recumbent bicycle for awareness of use home, good response, demonstrates improved R knee flexion able to perform full revolutions seat 11 then progressed to 10 last 2 min for multimedia instructional designer appt 8 min. Provided cues for R hip and knee flexion during trial rich stepping for functional AROM with slight circumduction but improved with feedback corrections. FILLER SIFTER HELPER set up proper personal trek pole height fit for pt and great patterning and jorge, almost effortless, cue x1 for DF foot clearance safety especially with uneven gravel home/ [place]. Provided brief manual STMs and knee mobility in to flexion with good feedback response that glide support feels so good. Pt reports little sore end tx with the amount activity today but stated will be helpful for home carryover. Declined CP ( disposable due to not very cold prior txs) end tx due to [place] err[place], will ice at home. Physical Therapy Plan Frequency and Duration Frequency of 1-2x/week Treatment Duration of 12 treatment (weeks) Plan of Care Start 04/15/25 Date Plan of Care End 07/08/25 Date Therapeutic Interventions Therapeutic Balance Training,Coordination Training,Gait Training, Interventions Home Exercise Program,Joint Mobilizations,Manual Therapy,Neuromuscular Re-education,Patient/Caregiver Education,Self-Care/Home Management,Soft Tissue Mobilization,Taping,Therapeutic Activities,Therapeutic Exercises Modalities Cold Pack/Ice Massage,Electric Stimulation,Infrared Therapy Next Visit Focus/Plan Next Note Type Treatment Note Next Visit Plan Recheck circumference swelling reduction progression, recumbent vs nustep warm up, recheck AROM next tx. REcheck R hip adduction, give hip IR strengthening. Maybe trial standing HS curl, check sit/standing. POC: cont w/ HEP and progress as able, manual for swelling, knee ROM *Add more appts next visit.
--- NOTE | 2025-04-30 15:03 | PT.OTN ---
Current Diagnoses Unilateral primary osteoarthritis, right knee (04/30/25) Osteoarthritis of knee, unspecified (04/30/25) Physical Therapy Treatment Note PT-OP-A Visit Information Start: 04/14/25 13:32 Freq: Status: Active Protocol: Document 04/30/25 14:18 [facility] (Rec: 04/30/25 15:02 [facility] [id number]) Out-Patient Physical Therapy Visit Information Visit Information Visit Type Treatment Note Visit Note Student PT Jewelcara GaitanAdornotwyla Silverio participated in session Visit Start Time 13:51 Visit Stop Time 14:31 Visit Number 4 (PN 8/1) Number of STEWARD/[employer] CAR Visits 0 PT-OP-B Current Condition Start: 04/14/25 13:32 Freq: Status: Active Protocol: Document 04/15/25 11:29 GG (Rec: 04/15/25 12:41 GG [id number]) Current Condition History of Current Condition Onset Date 03/27/25 Current Complaints R knee pain; s/p TKA History of Current No complications from surgery. Initially had extension Condition brace for 1 week. Used walker after and will use it occ when going long distances, but uses a cane in home and walking short distances. Travels from [facility]. Currently using Tylenol and has been doing so the past 2 days. Has an ice machine that has been really helpful . Used a CPM machine for the first 2 weeks following and says she could get to 110 deg. Has a friend in town to help out for another couple weeks. She also lives w / her but he is unable to help w/ heavy lifting . 13 stairs inside, 3-4 at entryway, bedroom/shower in basement. Notes that she has difficulty stepping into/ out of tub shower and tried to support using shower charley . Treatment Goals Patient/Caregiver walking, navigating terrain around house, getting into/ Goals out of tub shower PT-OP-C Subjective Start: 04/14/25 13:32 Freq: Status: Active Protocol: Document 04/30/25 14:18 [facility] (Rec: 04/30/25 15:02 [facility] [id number]) OP-PT Subjective Patient Comments Patient Comments Pt reports difficulty sleeping last night. walked 3700 steps yesterdy and did a lot of drivign in traffic when driving to appointment. Did not ice d/t away from home. Stiff today so hasnt done much today PT-OP-J Posture/Palpation/Skin Start: 04/14/25 13:32 Freq: Status: Active Protocol: Document 04/15/25 11:29 GG (Rec: 04/15/25 12:41 GG [id number]) Skin Assessment Other Assessments Skin Assessment vertical scar along anterior R knee about 10 and Comments another 1/2 scar just inferior to tibial tuberosity. healing better. some swelling present around knee and into ankle. some bruising at inferior medial knee, medial ankle, anterior/medial hip PT-OP-K Range of Motion Start: 04/14/25 13:32 Freq: Status: Active Protocol: Document 04/15/25 11:29 GG (Rec: 04/15/25 12:41 GG [id number]) Knee Goniometric Range of Motion Knee Right Flexion Active ( 95 degrees) Flexion Passive ( 98 degrees) Extension Active ( 4 degrees) Comments lacking extension to neutral PT-OP-M Strength Start: 04/14/25 13:32 Freq: Status: Active Protocol: Document 04/15/25 11:29 GG (Rec: 04/15/25 12:41 GG [id number]) Hip Strength Hip Manual Muscle Testing Right Flexion (L2) 4 Good Abduction 4 Good Adduction 3 Fair External Rotation 4+ Good+ Internal Rotation 4+ Good+ Comments extension n/t positioning Left Flexion (L2) 4+ Good+ Abduction 4- Good- Adduction 4 Good External Rotation 4+ Good+ Internal Rotation 5 Normal Comments extension n/t positioning Knee Strength Knee Manual Muscle Testing Right Flexion (S2) 3+ Fair+ Extension (L3) 4 Good Comments pain w/ extension Left Flexion (S2) 5 Normal Extension (L3) 5 Normal Ankle/Foot Strength Ankle and Foot Manual Muscle Testing Right Dorsiflexion (L4) 4+ Good+ Left Dorsiflexion (L4) 5 Normal PT-OP-Q Treatments Start: 04/14/25 13:32 Freq: Status: Active Protocol: Document 04/30/25 14:18 [facility] (Rec: 04/30/25 15:02 [facility] [id number]) Therapeutic Exercises Supine Exercises heel slides Supine Exercise Name w/ankle pumps (3x at end) Side right Reps/Minutes 10 Standing Exercises sit to stand Standing Exercise from elevated table Name Side bilateral Reps/Minutes 10 Comments equal WB knee flex Side right Reps/Minutes 2x10 Comments cues max TKE Side right Resistance L2 Reps/Minutes 15 Comments cues no heel lift and no shift of buttocks Manual Therapy Treatment Consent Patient gave verbal Yes consent for manual treatment Soft Tissue Mobilization HS Mobilization Type Rolling Intensity/Depth Moderate Body Position Supine Joint Mobilizations patellofemoral Joint superior/inferior Body Position Supine Self-Care/Home Management Treatment Education Other Education 8 min: edu to pt importance of cont icing and talking to provider about additional Tylenol/ibuprofen on busy days. Encouraged thigh high compression if in dependent position long positions. Edu to bring a ziploc w/for travels to be able to get ice from gas station and ice on travel days. encouraged to cont to gradually inc activity vs all at once PT-OP-R Modalities Start: 04/14/25 13:32 Freq: Status: Active Protocol: Document 04/21/25 13:02 SP (Rec: 04/21/25 13:51 SP [id number]) Hot Pack/Cold Pack Treatment R knee Patient Position Supine Patient Tolerance Good Comments towel roll under knee- 5 min end tx PT-OP-T Assessment and Plan Start: 04/14/25 13:32 Freq: Status: Active Protocol: Document 04/30/25 14:18 [facility] (Rec: 04/30/25 15:02 [facility] [id number]) Physical Therapy Assessment Goals activity Short Term Goal (STG Pt will be able to walk w/ her normal gait pattern w/o ) AD. STG Duration 05/30/25 Intermediate Goal (LTG) Pt will be able to walk at least 7000 steps/day to match prior level of function. Pt will be able to walk on uneven terrain w/o pain exceeding 2/10. LTG Duration 07/08/25 strength Short Term Goal (STG Pt will be independent in HEP. ) STG Duration 05/30/25 Intermediate Goal (LTG) Pt will score at least a 4+/5 on BLE MMTs for improved strength and ability to walk. LTG Duration 07/08/25 ROM Short Term Goal (STG Pt will measure at least 115 deg of R knee flexion for ) better ability to step into and out of the tub shower. STG Duration 05/30/25 Technical Stenographer Goal (LTG) Pt will measure at least 130 deg of R knee flexion for better ability to use stairs and biking. LTG Duration 07/08/25 LEFS Impairment 38 Short Term Goal (STG Pt will score at least a 50 on LEFS to show improved ) function. STG Duration 05/30/25 Technical Stenographer Goal (LTG) Pt will score at least a 60 on LEFS to show improved function. LTG Duration 07/08/25 Assessment Summary Assessment Pt had 5-115 deg today prior to manual and ther ex. Tolerated more advanced ther ex and manual treatment well Physical Therapy Plan Frequency and Duration Frequency of 1-2x/week Treatment Duration of 12 treatment (weeks) Plan of Care Start 04/15/25 Date Plan of Care End 07/08/25 Date Next Visit Focus/Plan Next Note Type Treatment Note Next Visit Plan cont to advance further strength and ROM
--- NOTE | 2025-05-02 14:09 | PT.OTN ---
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 Initially had extension Condition brace for 1 week. Used walker after and will use it occ when going long distances, but uses a cane in home and walking short distances. Travels from [facility]. Currently using Tylenol and has been doing so the past 2 days. Has an ice machine that has been really helpful . Used a CPM machine for the first 2 weeks following and says she could get to 110 deg. Has a friend in town to help out for another couple weeks. She also lives w / her but he is unable to help w/ heavy lifting . 13 stairs inside, 3-4 at entryway, bedroom/shower in basement. Notes that she has difficulty stepping into/ out of tub shower and tried to support using shower charley . Treatment Goals Patient/Caregiver walking, navigating terrain around house, getting into/ Goals out of tub shower PT-OP-C Subjective Start: 04/14/25 13:32 Freq: Status: Active Protocol: Document 05/02/25 13:00 AB (Rec: 05/02/25 14:04 AB [id number]) OP-PT Subjective Patient Comments Patient Comments Patient reports she is better than last time as she was stiff last session, reports she is getting into the hang of the new ex issued last session, and has been doing her recumbent bike. AROM R knee 0 to 111 deg start of session. PT-OP-J Posture/Palpation/Skin Start: 04/14/25 13:32 Freq: Status: Active Protocol: Document 04/15/25 11:29 GG (Rec: 04/15/25 12:41 GG [id number]) Skin Assessment Other Assessments Skin Assessment vertical scar along anterior R knee about 10 and Comments another 1/2 scar just inferior to tibial tuberosity. healing better. some swelling present around knee and into ankle. some bruising at inferior medial knee, medial ankle, anterior/medial hip PT-OP-K Range of Motion Start: 04/14/25 13:32 Freq: Status: Active Protocol: Document 04/15/25 11:29 GG (Rec: 04/15/25 12:41 GG [id number]) Knee Goniometric Range of Motion Knee Right Flexion Active ( 95 degrees) Flexion Passive ( 98 degrees) Extension Active ( 4 degrees) Comments lacking extension to neutral PT-OP-M Strength Start: 04/14/25 13:32 Freq: Status: Active Protocol: Document 04/15/25 11:29 GG (Rec: 04/15/25 12:41 GG [id number]) Hip Strength Hip Manual Muscle Testing Right Flexion (L2) 4 Good Abduction 4 Good Adduction 3 Fair External Rotation 4+ Good+ Internal Rotation 4+ Good+ Comments extension n/t positioning Left Flexion (L2) 4+ Good+ Abduction 4- Good- Adduction 4 Good External Rotation 4+ Good+ Internal Rotation 5 Normal Comments extension n/t positioning Knee Strength Knee Manual Muscle Testing Right Flexion (S2) 3+ Fair+ Extension (L3) 4 Good Comments pain w/ extension Left Flexion (S2) 5 Normal Extension (L3) 5 Normal Ankle/Foot Strength Ankle and Foot Manual Muscle Testing Right Dorsiflexion (L4) 4+ Good+ Left Dorsiflexion (L4) 5 Normal PT-OP-Q Treatments Start: 04/14/25 13:32 Freq: Status: Active Protocol: Document 05/02/25 13:00 AB (Rec: 05/02/25 14:04 AB [id number]) Therapeutic Exercises Supine Exercises heel slide on ball Side bilateral Reps/Minutes 3 min Comments verbal cues, post manual SLR Side right Reps/Minutes X 10 Comments Verbal cues Sitting Exercises seated quad set with facilit Sitting Exercise tapping to facilitate quad Name Side right Reps/Minutes X 8 Comments verbal and visual cues Standing Exercises sit to stand Standing Exercise Varying seat heights Name Reps/Minutes 2 X 5 Comments Verbal cues and Pt ed self tactile cues for hip hinge Manual Therapy Treatment Soft Tissue Mobilization R knee Mobilization Type Cross-Friction,Rolling,Other Intensity/Depth Moderate Body Position Hooklying Comments and superficial for swelling and inc tissue density dec tissue mobility Joint Mobilizations patellofemoral Joint superior/inferior, med, lat CW CCW Direction III Body Position Supine Comments R knee PT-OP-R Modalities Start: 04/14/25 13:32 Freq: Status: Active Protocol: Document 04/21/25 13:02 SP (Rec: 04/21/25 13:51 SP [id number]) Hot Pack/Cold Pack Treatment R knee Patient Position Supine Patient Tolerance Good Comments towel roll under knee- 5 min end tx PT-OP-T Assessment and Plan Start: 04/14/25 13:32 Freq: Status: Active Protocol: Document 05/02/25 13:00 AB (Rec: 05/02/25 14:04 AB [id number]) Physical Therapy Assessment Goals activity Short Term Goal (STG Pt will be able to walk w/ her normal gait pattern w/o ) AD. STG Duration 05/30/25 Cotton Puller Goal (LTG) Pt will be able to walk at least 7000 steps/day to match prior level of function. Pt will be able to walk on uneven terrain w/o pain exceeding 2/10. LTG Duration 07/08/25 strength Short Term Goal (STG Pt will be independent in HEP. ) STG Duration 05/30/25 Cotton Puller Goal (LTG) Pt will score at least a 4+/5 on BLE MMTs for improved strength and ability to walk. LTG Duration 07/08/25 ROM Short Term Goal (STG Pt will measure at least 115 deg of R knee flexion for ) better ability to step into and out of the tub shower. STG Duration 05/30/25 Retirement Goal (LTG) Pt will measure at least 130 deg of R knee flexion for better ability to use stairs and biking. LTG Duration 07/08/25 LEFS Impairment 38 Short Term Goal (STG Pt will score at least a 50 on LEFS to show improved ) function. STG Duration 05/30/25 Cotton Puller Goal (LTG) Pt will score at least a 60 on LEFS to show improved function. LTG Duration 07/08/25 Assessment Summary Assessment 114 deg AROM R knee flexion post ex and manual therapy, dec quad activation noted with quad set, improved with facilitation tech. Physical Therapy Plan Frequency and Duration Frequency of 1-2x/week Treatment Duration of 12 treatment (weeks) Plan of Care Start 04/15/25 Date Plan of Care End 07/08/25 Date Therapeutic Interventions Therapeutic Balance Training,Coordination Training,Gait Training, Interventions Home Exercise Program,Joint Mobilizations,Manual Therapy,Neuromuscular Re-education,Patient/Caregiver Education,Self-Care/Home Management,Soft Tissue Mobilization,Taping,Therapeutic Activities,Therapeutic Exercises Modalities Cold Pack/Ice Massage,Electric Stimulation,Infrared Therapy Next Visit Focus/Plan Next Note Type Treatment Note Next Visit Plan cont to advance further strength and ROM
--- NOTE | 2025-05-05 13:49 | PT.OTN ---
Current Diagnoses Unilateral primary osteoarthritis, right knee (05/05/25) Osteoarthritis of knee, unspecified (05/05/25) Physical Therapy Treatment Note PT-OP-A Visit Information Start: 04/14/25 13:32 Freq: Status: Active Protocol: Document 05/05/25 13:01 [facility] (Rec: 05/05/25 13:49 [facility] [id number]) Out-Patient Physical Therapy Visit Information Visit Information Visit Type Treatment Note Visit Note [email or web address] Access Code: [email or web address] Visit Start Time 13:03 Visit Stop Time 13:43 Visit Number 6 (PN 8/) Number of INDUSTRIAL ENG Visits 0 PT-OP-B Current Condition Start: 04/14/25 13:32 Freq: Status: Active Protocol: Document 04/15/25 11:29 GG (Rec: 04/15/25 12:41 GG [id number]) Current Condition History of Current Condition Onset Date 03/27/25 Current Complaints R knee pain; s/p TKA History of Current No complications from surgery. Initially had extension Condition brace for 1 week. Used walker after and will use it occ when going long distances, but uses a cane in home and walking short distances. Travels from [facility]. Currently using Tylenol and has been doing so the past 2 days. Has an ice machine that has been really helpful . Used a CPM machine for the first 2 weeks following and says she could get to 110 deg. Has a friend in town to help out for another couple weeks. She also lives w / her but he is unable to help w/ heavy lifting . 13 stairs inside, 3-4 at entryway, bedroom/shower in basement. Notes that she has difficulty stepping into/ out of tub shower and tried to support using shower charley . Treatment Goals Patient/Caregiver walking, navigating terrain around house, getting into/ Goals out of tub shower PT-OP-C Subjective Start: 04/14/25 13:32 Freq: Status: Active Protocol: Document 05/05/25 13:01 [facility] (Rec: 05/05/25 13:49 [facility] [id number]) OP-PT Subjective Patient Comments Patient Comments Pt a tired from driving to/from [place] this weekend. PT-OP-J Posture/Palpation/Skin Start: 04/14/25 13:32 Freq: Status: Active Protocol: Document 04/15/25 11:29 GG (Rec: 04/15/25 12:41 GG [id number]) Skin Assessment Other Assessments Skin Assessment vertical scar along anterior R knee about 10 and Comments another 1/2 scar just inferior to tibial tuberosity. healing better. some swelling present around knee and into ankle. some bruising at inferior medial knee, medial ankle, anterior/medial hip PT-OP-K Range of Motion Start: 04/14/25 13:32 Freq: Status: Active Protocol: Document 04/15/25 11:29 GG (Rec: 04/15/25 12:41 GG [id number]) Knee Goniometric Range of Motion Knee Right Flexion Active ( 95 degrees) Flexion Passive ( 98 degrees) Extension Active ( 4 degrees) Comments lacking extension to neutral PT-OP-M Strength Start: 04/14/25 13:32 Freq: Status: Active Protocol: Document 04/15/25 11:29 GG (Rec: 04/15/25 12:41 GG [id number]) Hip Strength Hip Manual Muscle Testing Right Flexion (L2) 4 Good Abduction 4 Good Adduction 3 Fair External Rotation 4+ Good+ Internal Rotation 4+ Good+ Comments extension n/t positioning Left Flexion (L2) 4+ Good+ Abduction 4- Good- Adduction 4 Good External Rotation 4+ Good+ Internal Rotation 5 Normal Comments extension n/t positioning Knee Strength Knee Manual Muscle Testing Right Flexion (S2) 3+ Fair+ Extension (L3) 4 Good Comments pain w/ extension Left Flexion (S2) 5 Normal Extension (L3) 5 Normal Ankle/Foot Strength Ankle and Foot Manual Muscle Testing Right Dorsiflexion (L4) 4+ Good+ Left Dorsiflexion (L4) 5 Normal PT-OP-Q Treatments Start: 04/14/25 13:32 Freq: Status: Active Protocol: Document 05/05/25 13:01 [facility] (Rec: 05/05/25 13:49 [facility] [id number]) Gym Equipment Shuttle Recovery Unilateral Squats Resistance 37# (navy band Shuttle Recovery Stable Platform Reps/Time 2x10 Bilateral Squats Resistance 75#, 87# (navy bands) Shuttle Recovery Stable Platform Reps/Time 15 ea Therapeutic Exercises Supine Exercises stretch Supine Exercise Name HS and calf Side right Equipment Used strap Reps/Minutes 60 sec heel slides Supine Exercise Name w/ankle pumps (3x at end) Side right Reps/Minutes 4 Sitting Exercises knee ext Sitting Exercise LAQ Name Side right Equipment Used L1 Reps/Minutes 10x 2sec hold knee flexion Sitting Exercise HS curl Name Side right Equipment Used L1 Reps/Minutes 10 Standing Exercises stretch Standing Exercise HS/calf Name Side right Reps/Minutes 60 sec sit to stand Standing Exercise 19 in bed Name Side bilateral Reps/Minutes 12 Comments use of hands to help up heel raises Standing Exercise on stairs DL Name Side bilateral Equipment Used rail Reps/Minutes 15 reps Comments cues even BLE weight Manual Therapy Treatment Soft Tissue Mobilization HS Mobilization Type Rolling Intensity/Depth Moderate Body Position Supine Scar mobility Body Location R knee Body Position Supine Comments in flex w/heel slides Joint Mobilizations tibiofemoral Joint AP tibia and femur patellofemoral Joint superior/inferior, med Direction III Body Position Supine Comments R knee PT-OP-R Modalities Start: 04/14/25 13:32 Freq: Status: Active Protocol: Document 04/21/25 13:02 SP (Rec: 04/21/25 13:51 SP [id number]) Hot Pack/Cold Pack Treatment R knee Patient Position Supine Patient Tolerance Good Comments towel roll under knee- 5 min end tx PT-OP-T Assessment and Plan Start: 04/14/25 13:32 Freq: Status: Active Protocol: Document 05/05/25 13:01 [facility] (Rec: 05/05/25 13:49 [facility] [id number]) Physical Therapy Assessment Goals activity Short Term Goal (STG Pt will be able to walk w/ her normal gait pattern w/o ) AD. STG Duration 05/30/25 Longterm Goal (LTG) Pt will be able to walk at least 7000 steps/day to match prior level of function. Pt will be able to walk on uneven terrain w/o pain exceeding 2/10. LTG Duration 07/08/25 strength Short Term Goal (STG Pt will be independent in HEP. ) STG Duration 05/30/25 Assembler Latches [employer] Springs Goal (LTG) Pt will score at least a 4+/5 on [facility] MMTs for improved strength and ability to walk. LTG Duration 07/08/25 ROM Short Term Goal (STG Pt will measure at least 115 deg of R knee flexion for ) better ability to step into and out of the tub shower. STG Duration 05/30/25 Longterm Goal (LTG) Pt will measure at least 130 deg of R knee flexion for better ability to use stairs and biking. LTG Duration 07/08/25 LEFS Impairment 38 Short Term Goal (STG Pt will score at least a 50 on LEFS to show improved ) function. STG Duration 05/30/25 Longterm Goal (LTG) Pt will score at least a 60 on LEFS to show improved function. LTG Duration 07/08/25 Assessment Summary Assessment 4-114 after ther ex. post manual: 0-118. DId well with advanced exercises today Physical Therapy Plan Frequency and Duration Frequency of 1-2x/week Treatment Duration of 12 treatment (weeks) Plan of Care Start 04/15/25 Date Plan of Care End 07/08/25 Date Next Visit Focus/Plan Next Note Type Treatment Note Next Visit Plan cont to advance further strength and ROM
--- NOTE | 2025-05-08 14:02 | PT.OTN ---
Current Diagnoses Unilateral primary osteoarthritis, right knee (05/08/25) Osteoarthritis of knee, unspecified (05/08/25) Physical Therapy Treatment Note PT-OP-A Visit Information Start: 04/14/25 13:32 Freq: Status: Active Protocol: Document 05/08/25 13:00 AB (Rec: 05/08/25 13:48 AB [id number]) Out-Patient Physical Therapy Visit Information Visit Information Visit Type Treatment Note Visit Note [email or web address] Access Code: [email or web address] Visit Start Time 13:01 Visit Stop Time 13:47 Visit Number 7 (PN 8/) Number of HARP REPAIRER Visits 1 PT-OP-B Current Condition Start: 04/14/25 13:32 Freq: Status: Active Protocol: Document 04/15/25 11:29 GG (Rec: 04/15/25 12:41 GG [id number]) Current Condition History of Current Condition Onset Date 03/27/25 Current Complaints R knee pain; s/p TKA History of Current No complications from surgery. Initially had extension Condition brace for 1 week. Used walker after and will use it occ when going long distances, but uses a cane in home and walking short distances. Travels from [facility]. Currently using Tylenol and has been doing so the past 2 days. Has an ice machine that has been really helpful . Used a CPM machine for the first 2 weeks following and says she could get to 110 deg. Has a friend in town to help out for another couple weeks. She also lives w / her but he is unable to help w/ heavy lifting . 13 stairs inside, 3-4 at entryway, bedroom/shower in basement. Notes that she has difficulty stepping into/ out of tub shower and tried to support using shower charley . Treatment Goals Patient/Caregiver walking, navigating terrain around house, getting into/ Goals out of tub shower PT-OP-C Subjective Start: 04/14/25 13:32 Freq: Status: Active Protocol: Document 05/08/25 13:00 AB (Rec: 05/08/25 13:48 AB [id number]) OP-PT Subjective Patient Comments Patient Comments Patient reports she did more on the bike and is more sore today, last night did level 3 last 10 minutes and both knees hurt. Patient reports feeling stiff. Patient initiates sit to stand with R knee extended. Patient also had to drive a golf cart yesterday. AROM lacking 4 deg ext to 104 deg flexion start of session. Patient reports she had 4 visits in [place] and isn't sure if it is part of the 16 that were approved. PT-OP-J Posture/Palpation/Skin Start: 04/14/25 13:32 Freq: Status: Active Protocol: Document 04/15/25 11:29 GG (Rec: 04/15/25 12:41 GG [id number]) Skin Assessment Other Assessments Skin Assessment vertical scar along anterior R knee about 10 and Comments another 1/2 scar just inferior to tibial tuberosity. healing better. some swelling present around knee and into ankle. some bruising at inferior medial knee, medial ankle, anterior/medial hip PT-OP-K Range of Motion Start: 04/14/25 13:32 Freq: Status: Active Protocol: Document 04/15/25 11:29 GG (Rec: 04/15/25 12:41 GG [id number]) Knee Goniometric Range of Motion Knee Right Flexion Active ( 95 degrees) Flexion Passive ( 98 degrees) Extension Active ( 4 degrees) Comments lacking extension to neutral PT-OP-M Strength Start: 04/14/25 13:32 Freq: Status: Active Protocol: Document 04/15/25 11:29 GG (Rec: 04/15/25 12:41 GG [id number]) Hip Strength Hip Manual Muscle Testing Right Flexion (L2) 4 Good Abduction 4 Good Adduction 3 Fair External Rotation 4+ Good+ Internal Rotation 4+ Good+ Comments extension n/t positioning Left Flexion (L2) 4+ Good+ Abduction 4- Good- Adduction 4 Good External Rotation 4+ Good+ Internal Rotation 5 Normal Comments extension n/t positioning Knee Strength Knee Manual Muscle Testing Right Flexion (S2) 3+ Fair+ Extension (L3) 4 Good Comments pain w/ extension Left Flexion (S2) 5 Normal Extension (L3) 5 Normal Ankle/Foot Strength Ankle and Foot Manual Muscle Testing Right Dorsiflexion (L4) 4+ Good+ Left Dorsiflexion (L4) 5 Normal PT-OP-Q Treatments Start: 04/14/25 13:32 Freq: Status: Active Protocol: Document 05/08/25 13:00 AB (Rec: 05/08/25 13:48 AB [id number]) Gym Equipment Shuttle Recovery Unilateral Squats Resistance 37# (navy band Shuttle Recovery Stable Platform Reps/Time 2x10 Bilateral Squats Resistance 87# (navy bands) Shuttle Recovery Stable Platform Reps/Time 15 X2 Therapeutic Exercises Supine Exercises heel slide on ball Side bilateral Reps/Minutes 1 min X 2 Comments verbal cues, post manual stretch Supine Exercise Name HS and gravity assisted knee flexion Side right Equipment Used from hookling Reps/Minutes 60 sec X 2 each Comments Verbal cues heel slides Supine Exercise Name w/ankle pumps (3x at end) Side right Reps/Minutes 5 X 2 SLR Side right Reps/Minutes X 10 Comments Verbal cues Standing Exercises sit to stand Standing Exercise 1. From chair in waiting area 2. from 19 inch mat Name height Reps/Minutes 1. X 1 2. X 10 Comments 1.VC to have equal flex R to L Manual Therapy Treatment Soft Tissue Mobilization R knee Body Location quad, HS, peripatellar area Mobilization Type Cross-Friction,Rolling,Other Intensity/Depth Moderate Body Position Hooklying Comments and superficial for swelling and inc tissue density dec tissue mobility PT-OP-R Modalities Start: 04/14/25 13:32 Freq: Status: Active Protocol: Document 04/21/25 13:02 SP (Rec: 04/21/25 13:51 SP [id number]) Hot Pack/Cold Pack Treatment R knee Patient Position Supine Patient Tolerance Good Comments towel roll under knee- 5 min end tx PT-OP-T Assessment and Plan Start: 04/14/25 13:32 Freq: Status: Active Protocol: Document 05/08/25 13:00 AB (Rec: 05/08/25 13:48 AB [id number]) Physical Therapy Assessment Goals activity Short Term Goal (STG Pt will be able to walk w/ her normal gait pattern w/o ) AD. STG Duration 05/30/25 Station Cashier Goal (LTG) Pt will be able to walk at least 7000 steps/day to match prior level of function. Pt will be able to walk on uneven terrain w/o pain exceeding 2/10. LTG Duration 07/08/25 strength Short Term Goal (STG Pt will be independent in HEP. ) STG Duration 05/30/25 Station Cashier Goal (LTG) Pt will score at least a 4+/5 on BLE MMTs for improved strength and ability to walk. LTG Duration 07/08/25 ROM Short Term Goal (STG Pt will measure at least 115 deg of R knee flexion for ) better ability to step into and out of the tub shower. STG Duration 05/30/25 Care Home Goal (LTG) Pt will measure at least 130 deg of R knee flexion for better ability to use stairs and biking. LTG Duration 07/08/25 LEFS Impairment 38 Short Term Goal (STG Pt will score at least a 50 on LEFS to show improved ) function. STG Duration 05/30/25 Station Cashier Goal (LTG) Pt will score at least a 60 on LEFS to show improved function. LTG Duration 07/08/25 Assessment Summary Assessment 110 deg post manual and ex. Patient into session with significant dec in AROM and reports of increased pain, attributes to golf cart driving and increased use of bike and resistance when using bike. Patient did gain back 7 deg flexion during this session. Physical Therapy Plan Frequency and Duration Frequency of 1-2x/week Treatment Duration of 12 treatment (weeks) Plan of Care Start 04/15/25 Date Plan of Care End 07/08/25 Date Next Visit Focus/Plan Next Note Type Treatment Note Next Visit Plan cont to advance further strength and ROM PT-Therapy Code Fee Billing Start: 04/14/25 13:32 Freq: Status: Active Protocol: Document 05/05/25 13:01 [facility] (Rec: 05/05/25 13:49 [facility] [id number]) Physical Therapy Total Visit Minutes 40 PT Charge Codes - Fee KX Modifier Therapy Cap No Exclusion Modifier Therapeutic Exercise (25851) Minutes 23 PT Unit(s) per 15 2 min Manual Therapy (48346) Minutes 17 PT Unit(s) per 15 1 min HARP REPAIRER-Therapy Code Fee Billing Start: 04/14/25 13:32 Freq: Status: Active Protocol: Document 05/08/25 13:00 AB (Rec: 05/08/25 13:48 AB [id number]) Physical Therapy Total Visit Minutes 46 HARP REPAIRER Charge Codes - Fee KX Modifier Therapy Cap No Exclusion Modifier Therapeutic Exercise (86793) Minutes 23 HARP REPAIRER Unit(s) per 15 2 min Manual Therapy (69596) Minutes 18 HARP REPAIRER Unit(s) per 15 1 min
--- NOTE | 2025-05-12 13:51 | PT.OTN ---
Current Diagnoses Unilateral primary osteoarthritis, right knee (05/12/25) Osteoarthritis of knee, unspecified (05/12/25) Physical Therapy Treatment Note PT OP: Lower Back/Extremity Start: 05/12/25 13:07 Freq: Status: Active Protocol: Document 05/12/25 13:08 [facility] (Rec: 05/12/25 13:51 [facility] [id number]) Out-Patient Physical Therapy Visit Information Visit Information Visit Type Progress Note Visit Note [email or web address] Access Code: [email or web address] Visit Start Time 13:05 Visit Stop Time 13:45 Visit Number 8 (PN 06/12) Number of STEREOTYPE FINISHER Visits 0 Knee Goniometric Range of Motion Knee Right Flexion Active ( 107 degrees) Extension Active ( 0 degrees) Hip Strength Hip Manual Muscle Testing Right Flexion (L2) 4 Good Abduction 4 Good Adduction 4 Good External Rotation 3+ Fair+ Internal Rotation 4 Good Comments extension n/t positioning Left Flexion (L2) 4+ Good+ Abduction 4 Good Adduction 4 Good External Rotation 4- Good- Internal Rotation 5 Normal Comments extension n/t positioning Knee Strength Knee Manual Muscle Testing Right Flexion (S2) 4 Good Extension (L3) 4- Good- Comments pain w/ extension Left Flexion (S2) 5 Normal Extension (L3) 5 Normal Ankle/Foot Strength Ankle and Foot Manual Muscle Testing Right Dorsiflexion (L4) 5 Normal Left Dorsiflexion (L4) 5 Normal Gym Equipment Shuttle Recovery Unilateral Squats Resistance 37# (navy band Shuttle Recovery Stable Platform Reps/Time 2x10 Bilateral Squats Resistance 87# (navy bands) Shuttle Recovery Stable Platform Reps/Time 15 X2 Therapeutic Exercises Supine Exercises heel slides Side right Reps/Minutes 6 Sitting Exercises knee ext Sitting Exercise LAQ Name Side right Equipment Used L1 Reps/Minutes 10x 2sec hold knee flexion Sitting Exercise HS curl Name Side right Equipment Used L1 Reps/Minutes 10 Manual Therapy Treatment Consent Patient gave verbal Yes consent for manual treatment Soft Tissue Mobilization HS Mobilization Type Rolling Intensity/Depth Moderate Body Position Supine Comments w/knee flex Scar mobility Body Location R knee Body Position Supine Comments in flex w/heel slides Joint Mobilizations patellofemoral Joint superior/inferior, med Direction III Body Position Supine Comments R knee Physical Therapy Assessment Goals activity Short Term Goal (STG Pt will be able to walk w/ her normal gait pattern w/o ) AD. 05/12- achieved on even surfaces.- minor deviation STG Duration achieved 05/12 Straight Knife Machine Cutter Goal (LTG) Pt will be able to walk at least 7000 steps/day to match prior level of function. Pt will be able to walk on uneven terrain w/o pain exceeding 2/10. 05/12-3500 steps a day LTG Duration 07/08/25 strength Short Term Goal (STG Pt will be independent in HEP. ) 05/12-achieved advancing as able STG Duration met 05/12 [facility] Goal (LTG) Pt will score at least a 4+/5 on BLE MMTs for improved strength and ability to walk. 05/12-improving LTG Duration 07/08/25 ROM Short Term Goal (STG Pt will measure at least 115 deg of R knee flexion for ) better ability to step into and out of the tub shower. 05/12- STG Duration 05/30/25 Straight Knife Machine Cutter Goal (LTG) Pt will measure at least 130 deg of R knee flexion for better ability to use stairs and biking. LTG Duration 07/08/25 LEFS Impairment 38 Short Term Goal (STG Pt will score at least a 50 on LEFS to show improved ) function. 05/12-48 STG Duration 05/30/25 Straight Knife Machine Cutter Goal (LTG) Pt will score at least a 60 on LEFS to show improved function. LTG Duration 07/08/25 Assessment Summary Assessment Pt improving with ROM, strength and functional mobility . She would benefit from cont skilled PT to address these deficits. Physical Therapy Plan Frequency and Duration Frequency of 1-2x/week Treatment Duration of 12 treatment (weeks) Plan of Care Start 04/15/25 Plan of Care End 07/08/25 Date Therapeutic Interventions Therapeutic Balance Training,Coordination Training,Gait Training, Interventions Home Exercise Program,Joint Mobilizations,Manual Therapy,Neuromuscular Re-education,Patient/Caregiver Education,Self-Care/Home Management,Soft Tissue Mobilization,Taping,Therapeutic Activities,Therapeutic Exercises Modalities Cold Pack/Ice Massage,Electric Stimulation,Infrared Therapy Next Visit Focus/Plan Next Note Type Treatment Note Next Visit Plan cont to advance further strength and ROM PT-OP-A Visit Information Start: 04/14/25 13:32 Freq: Status: Active Protocol: Document 05/08/25 13:00 AB (Rec: 05/08/25 13:48 AB [id number]) Out-Patient Physical Therapy Visit Information Visit Information Visit Type Treatment Note Visit Note [email or web address] Access Code: [email or web address] Visit Start Time 13:01 Visit Stop Time 13:47 Visit Number 7 (PN 8/1) Number of STEREOTYPE FINISHER Visits 1 PT-OP-B Current Condition Start: 04/14/25 13:32 Freq: Status: Active Protocol: Document 04/15/25 11:29 GG (Rec: 04/15/25 12:41 GG [id number]) Current Condition History of Current Condition Onset Date 03/27/25 Current Complaints R knee pain; s/p TKA History of Current No complications from surgery. Initially had extension Condition brace for 1 week. Used walker after and will use it occ when going long distances, but uses a cane in home and walking short distances. Travels from [facility]. Currently using Tylenol and has been doing so the past 2 days. Has an ice machine that has been really helpful . Used a CPM machine for the first 2 weeks following and says she could get to 110 deg. Has a friend in town to help out for another couple weeks. She also lives w / her but he is unable to help w/ heavy lifting . 13 stairs inside, 3-4 at entryway, bedroom/shower in basement. Notes that she has difficulty stepping into/ out of tub shower and tried to support using shower charley . Treatment Goals Patient/Caregiver walking, navigating terrain around house, getting into/ Goals out of tub shower PT-OP-C Subjective Start: 04/14/25 13:32 Freq: Status: Active Protocol: Document 05/08/25 13:00 AB (Rec: 05/08/25 13:48 AB [id number]) OP-PT Subjective Patient Comments Patient Comments Patient reports she did more on the bike and is more sore today, last night did level 3 last 10 minutes and both knees hurt. Patient reports feeling stiff. Patient initiates sit to stand with R knee extended. Patient also had to drive a golf cart yesterday. AROM lacking 4 deg ext to 104 deg flexion start of session. Patient reports she had 4 visits in [place] and isn't sure if it is part of the 16 that were approved. PT-OP-J Posture/Palpation/Skin Start: 04/14/25 13:32 Freq: Status: Active Protocol: Document 04/15/25 11:29 GG (Rec: 04/15/25 12:41 GG [id number]) Skin Assessment Other Assessments Skin Assessment vertical scar along anterior R knee about 10 and Comments another 1/2 scar just inferior to tibial tuberosity. healing better. some swelling present around knee and into ankle. some bruising at inferior medial knee, medial ankle, anterior/medial hip PT-OP-K Range of Motion Start: 04/14/25 13:32 Freq: Status: Active Protocol: Document 04/15/25 11:29 GG (Rec: 04/15/25 12:41 GG [id number]) Knee Goniometric Range of Motion Knee Right Flexion Active ( 95 degrees) Flexion Passive ( 98 degrees) Extension Active ( 4 degrees) Comments lacking extension to neutral PT-OP-M Strength Start: 04/14/25 13:32 Freq: Status: Active Protocol: Document 04/15/25 11:29 GG (Rec: 04/15/25 12:41 GG [id number]) Hip Strength Hip Manual Muscle Testing Right Flexion (L2) 4 Good Abduction 4 Good Adduction 3 Fair External Rotation 4+ Good+ Internal Rotation 4+ Good+ Comments extension n/t positioning Left Flexion (L2) 4+ Good+ Abduction 4- Good- Adduction 4 Good External Rotation 4+ Good+ Internal Rotation 5 Normal Comments extension n/t positioning Knee Strength Knee Manual Muscle Testing Right Flexion (S2) 3+ Fair+ Extension (L3) 4 Good Comments pain w/ extension Left Flexion (S2) 5 Normal Extension (L3) 5 Normal Ankle/Foot Strength Ankle and Foot Manual Muscle Testing Right Dorsiflexion (L4) 4+ Good+ Left Dorsiflexion (L4) 5 Normal PT-OP-Q Treatments Start: 04/14/25 13:32 Freq: Status: Active Protocol: Document 05/08/25 13:00 AB (Rec: 05/08/25 13:48 AB [id number]) Gym Equipment Shuttle Recovery Unilateral Squats Resistance 37# (navy band Shuttle Recovery Stable Platform Reps/Time 2x10 Bilateral Squats Resistance 87# (navy bands) Shuttle Recovery Stable Platform Reps/Time 15 X2 Therapeutic Exercises Supine Exercises heel slide on ball Side bilateral Reps/Minutes 1 min X 2 Comments verbal cues, post manual stretch Supine Exercise Name HS and gravity assisted knee flexion Side right Equipment Used from hookling Reps/Minutes 60 sec X 2 each Comments Verbal cues heel slides Supine Exercise Name w/ankle pumps (3x at end) Side right Reps/Minutes 5 X 2 SLR Side right Reps/Minutes X 10 Comments Verbal cues Standing Exercises sit to stand Standing Exercise 1. From chair in waiting area 2. from 19 inch mat Name height Reps/Minutes 1. X 1 2. X 10 Comments 1.VC to have equal flex R to L Manual Therapy Treatment Soft Tissue Mobilization R knee Body Location quad, HS, peripatellar area Mobilization Type Cross-Friction,Rolling,Other Intensity/Depth Moderate Body Position Hooklying Comments and superficial for swelling and inc tissue density dec tissue mobility PT-OP-R Modalities Start: 04/14/25 13:32 Freq: Status: Active Protocol: Document 04/21/25 13:02 SP (Rec: 04/21/25 13:51 SP [id number]) Hot Pack/Cold Pack Treatment R knee Patient Position Supine Patient Tolerance Good Comments towel roll under knee- 5 min end tx PT-OP-T Assessment and Plan Start: 04/14/25 13:32 Freq: Status: Active Protocol: Document 05/08/25 13:00 AB (Rec: 05/08/25 13:48 AB [id number]) Physical Therapy Assessment Goals activity Short Term Goal (STG Pt will be able to walk w/ her normal gait pattern w/o ) AD. STG Duration 05/30/25 Straight Knife Machine Cutter Goal (LTG) Pt will be able to walk at least 7000 steps/day to match prior level of function. Pt will be able to walk on uneven terrain w/o pain exceeding 2/10. LTG Duration 07/08/25 strength Short Term Goal (STG Pt will be independent in HEP. ) STG Duration 05/30/25 Straight Knife Machine Cutter Goal (LTG) Pt will score at least a 4+/5 on BLE MMTs for improved strength and ability to walk. LTG Duration 07/08/25 ROM Short Term Goal (STG Pt will measure at least 115 deg of R knee flexion for ) better ability to step into and out of the tub shower. STG Duration 05/30/25 Straight Knife Machine Cutter Goal (LTG) Pt will measure at least 130 deg of R knee flexion for better ability to use stairs and biking. LTG Duration 07/08/25 LEFS Impairment 38 Short Term Goal (STG Pt will score at least a 50 on LEFS to show improved ) function. STG Duration 05/30/25 [facility] Goal (LTG) Pt will score at least a 60 on LEFS to show improved function. LTG Duration 07/08/25 Assessment Summary Assessment 110 deg post manual and ex. Patient into session with significant dec in AROM and reports of increased pain, attributes to golf cart driving and increased use of bike and resistance when using bike. Patient did gain back 7 deg flexion during this session. Physical Therapy Plan Frequency and Duration Frequency of 1-2x/week Treatment Duration of 12 treatment (weeks) Plan of Care Start 04/15/25 Date Plan of Care End 07/08/25 Date Next Visit Focus/Plan Next Note Type Treatment Note Next Visit Plan cont to advance further strength and ROM
--- NOTE | 2025-05-12 16:17 | PT.OTN ---
Current Diagnoses Unilateral primary osteoarthritis, right knee (05/12/25) Osteoarthritis of knee, unspecified (05/12/25) Physical Therapy Treatment Note PT OP: Lower Back/Extremity Start: 05/12/25 13:07 Freq: Status: Active Protocol: Document 05/12/25 13:08 [facility] (Rec: 05/12/25 13:51 [facility] [id number]) Out-Patient Physical Therapy Visit Information Visit Information Visit Type Progress Note Visit Note [email or web address] Access Code: [email or web address] Visit Start Time 13:05 Visit Stop Time 13:45 Visit Number 8 (PN 06/12) Number of PRESS CATCHER Visits 0 Knee Goniometric Range of Motion Knee Right Flexion Active ( 107 degrees) Extension Active ( 0 degrees) Hip Strength Hip Manual Muscle Testing Right Flexion (L2) 4 Good Abduction 4 Good Adduction 4 Good External Rotation 3+ Fair+ Internal Rotation 4 Good Comments extension n/t positioning Left Flexion (L2) 4+ Good+ Abduction 4 Good Adduction 4 Good External Rotation 4- Good- Internal Rotation 5 Normal Comments extension n/t positioning Knee Strength Knee Manual Muscle Testing Right Flexion (S2) 4 Good Extension (L3) 4- Good- Comments pain w/ extension Left Flexion (S2) 5 Normal Extension (L3) 5 Normal Ankle/Foot Strength Ankle and Foot Manual Muscle Testing Right Dorsiflexion (L4) 5 Normal Left Dorsiflexion (L4) 5 Normal Gym Equipment Shuttle Recovery Unilateral Squats Resistance 37# (navy band Shuttle Recovery Stable Platform Reps/Time 2x10 Bilateral Squats Resistance 87# (navy bands) Shuttle Recovery Stable Platform Reps/Time 15 X2 Therapeutic Exercises Supine Exercises heel slides Side right Reps/Minutes 6 Sitting Exercises knee ext Sitting Exercise LAQ Name Side right Equipment Used L1 Reps/Minutes 10x 2sec hold knee flexion Sitting Exercise HS curl Name Side right Equipment Used L1 Reps/Minutes 10 Manual Therapy Treatment Consent Patient gave verbal Yes consent for manual treatment Soft Tissue Mobilization HS Mobilization Type Rolling Intensity/Depth Moderate Body Position Supine Comments w/knee flex Scar mobility Body Location R knee Body Position Supine Comments in flex w/heel slides Joint Mobilizations patellofemoral Joint superior/inferior, med Direction III Body Position Supine Comments R knee Physical Therapy Assessment Goals activity Short Term Goal (STG Pt will be able to walk w/ her normal gait pattern w/o ) AD. 05/12- achieved on even surfaces.- minor deviation STG Duration achieved 05/12 Photographer Goal (LTG) Pt will be able to walk at least 7000 steps/day to match prior level of function. Pt will be able to walk on uneven terrain w/o pain exceeding 2/10. 05/12-3500 steps a day LTG Duration 07/08/25 strength Short Term Goal (STG Pt will be independent in HEP. ) 05/12-achieved advancing as able STG Duration met 05/12 Detention Goal (LTG) Pt will score at least a 4+/5 on BLE MMTs for improved strength and ability to walk. 05/12-improving LTG Duration 07/08/25 ROM Short Term Goal (STG Pt will measure at least 115 deg of R knee flexion for ) better ability to step into and out of the tub shower. 05/12-107 STG Duration 05/30/25 Detention Goal (LTG) Pt will measure at least 130 deg of R knee flexion for better ability to use stairs and biking. LTG Duration 07/08/25 LEFS Impairment 38 Short Term Goal (STG Pt will score at least a 50 on LEFS to show improved ) function. 05/12-48 STG Duration 05/30/25 Photographer Goal (LTG) Pt will score at least a 60 on LEFS to show improved function. LTG Duration 07/08/25 Assessment Summary Assessment Pt improving with ROM, strength and functional mobility . She would benefit from cont skilled PT to address these deficits. Physical Therapy Plan Frequency and Duration Frequency of 1-2x/week Treatment Duration of 12 treatment (weeks) Plan of Care Start 04/15/25 Plan of Care End 07/08/25 Date Therapeutic Interventions Therapeutic Balance Training,Coordination Training,Gait Training, Interventions Home Exercise Program,Joint Mobilizations,Manual Therapy,Neuromuscular Re-education,Patient/Caregiver Education,Self-Care/Home Management,Soft Tissue Mobilization,Taping,Therapeutic Activities,Therapeutic Exercises Modalities Cold Pack/Ice Massage,Electric Stimulation,Infrared Therapy Next Visit Focus/Plan Next Note Type Treatment Note Next Visit Plan cont to advance further strength and ROM
--- NOTE | 2025-05-12 18:33 | PT.OPPN ---
Current Diagnoses Unilateral primary osteoarthritis, right knee (05/12/25) Osteoarthritis of knee, unspecified (05/12/25) Physical Therapy Progress Note PT OP: Lower Back/Extremity Start: 05/12/25 13:07 Freq: Status: Active Protocol: Document 05/12/25 13:08 [facility] (Rec: 05/12/25 13:51 [facility] [id number]) Out-Patient Physical Therapy Visit Information Visit Information Visit Type Progress Note Visit Note [email or web address] Access [email or web address]: [email or web address] Visit Start Time 13:05 Visit Stop Time 13:45 Visit Number 8 (PN 06/12) Number of MANAGER FRONT OFFICE Visits 0 Knee Goniometric Range of Motion Knee Measured in Degrees Right Flexion Active ( 107 degrees) Extension Active ( 0 degrees) Hip Strength Hip Manual Muscle Testing Right Flexion (L2) 4 Good Abduction 4 Good Adduction 4 Good External Rotation 3+ Fair+ Internal Rotation 4 Good Comments extension n/t positioning Left Flexion (L2) 4+ Good+ Abduction 4 Good Adduction 4 Good External Rotation 4- Good- Internal Rotation 5 Normal Comments extension n/t positioning Knee Strength Knee Manual Muscle Testing Right Flexion (S2) 4 Good Extension (L3) 4- Good- Comments pain w/ extension Left Flexion (S2) 5 Normal Extension (L3) 5 Normal Ankle/Foot Strength Ankle and Foot Manual Muscle Testing Right Dorsiflexion (L4) 5 Normal Left Dorsiflexion (L4) 5 Normal Gym Equipment Shuttle Recovery Unilateral Squats Resistance 37# (navy band Shuttle Recovery Stable Platform Reps/Time 2x10 Bilateral Squats Resistance 87# (navy bands) Shuttle Recovery Stable Platform Reps/Time 15 X2 Therapeutic Exercises Supine Exercises heel slides Side right Reps/Minutes 6 Sitting Exercises knee ext Sitting Exercise LAQ Name Side right Equipment Used L1 Reps/Minutes 10x 2sec hold knee flexion Sitting Exercise HS curl Name Side right Equipment Used L1 Reps/Minutes 10 Manual Therapy Treatment Consent Patient gave verbal Yes consent for manual treatment Soft Tissue Mobilization HS Mobilization Type Rolling Intensity/Depth Moderate Body Position Supine Comments w/knee flex Scar mobility Body Location R knee Body Position Supine Comments in flex w/heel slides Joint Mobilizations patellofemoral Joint superior/inferior, med Direction III Body Position Supine Comments R knee Physical Therapy Assessment Goals activity Short Term Goal (STG Pt will be able to walk w/ her normal gait pattern w/o ) AD. 05/12- achieved on even surfaces.- minor deviation STG Duration achieved 05/12 Retirement Goal (LTG) Pt will be able to walk at least 7000 steps/day to match prior level of function. Pt will be able to walk on uneven terrain w/o pain exceeding 2/10. 05/12-3500 steps a day LTG Duration 07/08/25 strength Short Term Goal (STG Pt will be independent in HEP. ) 05/12-achieved advancing as able STG Duration met 05/12 Retirement Goal (LTG) Pt will score at least a 4+/5 on BLE MMTs for improved strength and ability to walk. 05/12-improving LTG Duration 07/08/25 ROM Short Term Goal (STG Pt will measure at least 115 deg of R knee flexion for ) better ability to step into and out of the tub shower. 05/12-107 STG Duration 05/30/25 Marketing Sales Consultant Goal (LTG) Pt will measure at least 130 deg of R knee flexion for better ability to use stairs and biking. LTG Duration 07/08/25 LEFS Impairment 38 Short Term Goal (STG Pt will score at least a 50 on LEFS to show improved ) function. 05/12-48 STG Duration 05/30/25 Retirement Goal (LTG) Pt will score at least a 60 on LEFS to show improved function. LTG Duration 07/08/25 Assessment Summary Assessment Pt improving with ROM, strength and functional mobility . She would benefit from cont skilled PT to address these deficits. Physical Therapy Plan Frequency and Duration Frequency of 1-2x/week Treatment Duration of 12 treatment (weeks) Plan of Care Start 04/15/25 Date Plan of Care End 07/08/25 Date Therapeutic Interventions Therapeutic Balance Training,Coordination Training,Gait Training, Interventions Home Exercise Program,Joint Mobilizations,Manual Therapy,Neuromuscular Re-education,Patient/Caregiver Education,Self-Care/Home Management,Soft Tissue Mobilization,Taping,Therapeutic Activities,Therapeutic Exercises Modalities Cold Pack/Ice Massage,Electric Stimulation,Infrared Therapy Next Visit Focus/Plan Next Note Type Treatment Note Next Visit Plan cont to advance further strength and ROM
--- NOTE | 2025-05-15 14:14 | PT.OTN ---
Current Diagnoses Unilateral primary osteoarthritis, right knee (05/15/25) Osteoarthritis of knee, unspecified (05/15/25) Physical Therapy Treatment Note PT OP: Lower Back/Extremity Start: 05/12/25 13:07 Freq: Status: Active Protocol: Document 05/15/25 12:57 AB (Rec: 05/15/25 14:00 AB [id number]) Out-Patient Physical Therapy Visit Information Visit Information Visit Type Treatment Note Visit Note [email or web address] Access [email or web address]: [email or web address] Visit Start Time 13:01 Visit Stop Time 13:48 Visit Number 9 (PN 06/12) Number of STOREHOUSE CLERK Visits 1 OP-PT Subjective Patient Comments Patient Comments Patient reports having Plantar fasciitis R LE and is using a tennis ball and Tylenol for the pain. Aga reports knee is better when she walks. Lacking 3 deg extension to 107 deg flexion. Therapeutic Exercises Supine Exercises heel slide on ball Side bilateral Reps/Minutes 2 min Comments verbal cues, post manual stretch Supine Exercise Name HS and gravity assisted knee flexion Side right Equipment Used from hookling Reps/Minutes 60 sec X each Comments Verbal cues heel slides Side right Reps/Minutes X 5 X 2 SLR Reps/Minutes X 10 Sitting Exercises knee ext Sitting Exercise LAQ Name Side right Equipment Used L1 Reps/Minutes X 4 Comments for position of band Standing Exercises stretch Standing Exercise calf gildardo and soleus HEP Name Side right Reps/Minutes 60 sec Comments verbal cues Manual Therapy Treatment Consent Patient gave verbal Yes consent for manual treatment Soft Tissue Mobilization R knee Body Location quad, HS, peripatellar area Mobilization Type Cross-Friction,Rolling,Other Intensity/Depth Moderate Body Position Hooklying HS Mobilization Type Cross-Friction,Rolling Intensity/Depth Moderate Body Position Supine Physical Therapy Assessment Goals activity Short Term Goal (STG Pt will be able to walk w/ her normal gait pattern w/o ) AD. 05/12- achieved on even surfaces.- minor deviation STG Duration achieved 05/12 Core Composer Feeder Goal (LTG) Pt will be able to walk at least 7000 steps/day to match prior level of function. Pt will be able to walk on uneven terrain w/o pain exceeding 2/10. 05/12-3500 steps a day LTG Duration 07/08/25 strength Short Term Goal (STG Pt will be independent in HEP. ) 05/12-achieved advancing as able STG Duration met 05/12 Skilled Nursing Goal (LTG) Pt will score at least a 4+/5 on BLE MMTs for improved strength and ability to walk. 05/12-improving LTG Duration 07/08/25 ROM Short Term Goal (STG Pt will measure at least 115 deg of R knee flexion for ) better ability to step into and out of the tub shower. 05/12- STG Duration 05/30/25 Skilled Nursing Goal (LTG) Pt will measure at least 130 deg of R knee flexion for better ability to use stairs and biking. LTG Duration 07/08/25 LEFS Impairment 38 Short Term Goal (STG Pt will score at least a 50 on LEFS to show improved ) function. 05/12- STG Duration 05/30/25 Core Composer Feeder Goal (LTG) Pt will score at least a 60 on LEFS to show improved function. LTG Duration 07/08/25 Assessment Summary Assessment AROM 110 deg post manual and ex, quad lag with SLR persists. Physical Therapy Plan Frequency and Duration Frequency of 1-2x/week Treatment Duration of 12 treatment (weeks) Plan of Care Start 04/15/25 Date Plan of Care End 07/08/25 Date Next Visit Focus/Plan Next Note Type Treatment Note Next Visit Plan cont to advance further strength and ROM PT-OP-A Visit Information Start: 04/14/25 13:32 Freq: Status: Active Protocol: Document 05/15/25 12:57 AB (Rec: 05/15/25 14:00 AB [id number]) Out-Patient Physical Therapy Visit Information Visit Information Visit Type Treatment Note Visit Note [email or web address] Access Code: [email or web address] Visit Start Time 13:01 Visit Stop Time 13:48 Visit Number 9 (PN 06/12) Number of STOREHOUSE CLERK Visits 1 PT-OP-B Current Condition Start: 04/14/25 13:32 Freq: Status: Active Protocol: Document 04/15/25 11:29 GG (Rec: 04/15/25 12:41 GG [id number]) Current Condition History of Current Condition Onset Date 03/27/25 Current Complaints R knee pain; s/p TKA History of Current No complications from surgery. Initially had extension Condition brace for 1 week. Used walker after and will use it occ when going long distances, but uses a cane in home and walking short distances. Travels from [facility]. Currently using Tylenol and has been doing so the past 2 days. Has an ice machine that has been really helpful . Used a CPM machine for the first 2 weeks following and says she could get to 110 deg. Has a friend in town to help out for another couple weeks. She also lives w / her but he is unable to help w/ heavy lifting . 13 stairs inside, 3-4 at entryway, bedroom/shower in basement. Notes that she has difficulty stepping into/ out of tub shower and tried to support using shower charley . Treatment Goals Patient/Caregiver walking, navigating terrain around house, getting into/ Goals out of tub shower PT-OP-C Subjective Start: 04/14/25 13:32 Freq: Status: Active Protocol: Document 05/15/25 12:57 AB (Rec: 05/15/25 14:00 AB [id number]) OP-PT Subjective Patient Comments Patient Comments Patient reports having Plantar fasciitis R LE and is using a tennis ball and Tylenol for the pain. Aga reports knee is better when she walks. Lacking 3 deg extension to 107 deg flexion. PT-OP-J Posture/Palpation/Skin Start: 04/14/25 13:32 Freq: Status: Active Protocol: Document 04/15/25 11:29 GG (Rec: 04/15/25 12:41 GG [id number]) Skin Assessment Other Assessments Skin Assessment vertical scar along anterior R knee about 10 and Comments another 1/2 scar just inferior to tibial tuberosity. healing better. some swelling present around knee and into ankle. some bruising at inferior medial knee, medial ankle, anterior/medial hip PT-OP-K Range of Motion Start: 04/14/25 13:32 Freq: Status: Active Protocol: Document 04/15/25 11:29 GG (Rec: 04/15/25 12:41 GG [id number]) Knee Goniometric Range of Motion Knee Right Flexion Active ( 95 degrees) Flexion Passive ( 98 degrees) Extension Active ( 4 degrees) Comments lacking extension to neutral PT-OP-M Strength Start: 04/14/25 13:32 Freq: Status: Active Protocol: Document 04/15/25 11:29 GG (Rec: 04/15/25 12:41 GG [id number]) Hip Strength Hip Manual Muscle Testing Right Flexion (L2) 4 Good Abduction 4 Good Adduction 3 Fair External Rotation 4+ Good+ Internal Rotation 4+ Good+ Comments extension n/t positioning Left Flexion (L2) 4+ Good+ Abduction 4- Good- Adduction 4 Good External Rotation 4+ Good+ Internal Rotation 5 Normal Comments extension n/t positioning Knee Strength Knee Manual Muscle Testing Right Flexion (S2) 3+ Fair+ Extension (L3) 4 Good Comments pain w/ extension Left Flexion (S2) 5 Normal Extension (L3) 5 Normal Ankle/Foot Strength Ankle and Foot Manual Muscle Testing Right Dorsiflexion (L4) 4+ Good+ Left Dorsiflexion (L4) 5 Normal PT-OP-Q Treatments Start: 04/14/25 13:32 Freq: Status: Active Protocol: Document 05/15/25 12:57 AB (Rec: 05/15/25 14:00 AB [id number]) Therapeutic Exercises Supine Exercises heel slide on ball Side bilateral Reps/Minutes 2 min Comments verbal cues, post manual stretch Supine Exercise Name HS and gravity assisted knee flexion Side right Equipment Used from hookling Reps/Minutes 60 sec X each Comments Verbal cues heel slides Side right Reps/Minutes X 5 X 2 SLR Reps/Minutes X 10 Sitting Exercises knee ext Sitting Exercise LAQ Name Side right Equipment Used L1 Reps/Minutes X 4 Comments for position of band Standing Exercises stretch Standing Exercise calf gildardo and soleus HEP Name Side right Reps/Minutes 60 sec Comments verbal cues Manual Therapy Treatment Consent Patient gave verbal Yes consent for manual treatment Soft Tissue Mobilization R knee Body Location quad, HS, peripatellar area Mobilization Type Cross-Friction,Rolling,Other Intensity/Depth Moderate Body Position Hooklying HS Mobilization Type Cross-Friction,Rolling Intensity/Depth Moderate Body Position Supine PT-OP-R Modalities Start: 04/14/25 13:32 Freq: Status: Active Protocol: Document 04/21/25 13:02 SP (Rec: 04/21/25 13:51 SP [id number]) Hot Pack/Cold Pack Treatment R knee Patient Position Supine Patient Tolerance Good Comments towel roll under knee- 5 min end tx PT-OP-T Assessment and Plan Start: 04/14/25 13:32 Freq: Status: Active Protocol: Document 05/15/25 12:57 AB (Rec: 05/15/25 14:00 AB [id number]) Physical Therapy Assessment Goals activity Short Term Goal (STG Pt will be able to walk w/ her normal gait pattern w/o ) AD. 05/12- achieved on even surfaces.- minor deviation STG Duration achieved 05/12 Skilled Nursing Goal (LTG) Pt will be able to walk at least 7000 steps/day to match prior level of function. Pt will be able to walk on uneven terrain w/o pain exceeding 2/10. 05/12-3500 steps a day LTG Duration 07/08/25 strength Short Term Goal (STG Pt will be independent in HEP. ) 05/12-achieved advancing as able STG Duration met 05/12 Core Composer Feeder Goal (LTG) Pt will score at least a 4+/5 on BLE MMTs for improved strength and ability to walk. 05/12-improving LTG Duration 07/08/25 ROM Short Term Goal (STG Pt will measure at least 115 deg of R knee flexion for ) better ability to step into and out of the tub shower. 05/12-107 STG Duration 05/30/25 Core Composer Feeder Goal (LTG) Pt will measure at least 130 deg of R knee flexion for better ability to use stairs and biking. LTG Duration 07/08/25 LEFS Impairment 38 Short Term Goal (STG Pt will score at least a 50 on LEFS to show improved ) function. 05/12-48 STG Duration 05/30/25 Core Composer Feeder Goal (LTG) Pt will score at least a 60 on LEFS to show improved function. LTG Duration 07/08/25 Assessment Summary Assessment AROM 110 deg post manual and ex, quad lag with SLR persists. Physical Therapy Plan Frequency and Duration Frequency of 1-2x/week Treatment Duration of 12 treatment (weeks) Plan of Care Start 04/15/25 Date Plan of Care End 07/08/25 Date Next Visit Focus/Plan Next Note Type Treatment Note Next Visit Plan cont to advance further strength and ROM
--- NOTE | 2025-05-22 11:38 | PT.OTN ---
Current Diagnoses Unilateral primary osteoarthritis, right knee (05/22/25) Osteoarthritis of knee, unspecified (05/22/25) Physical Therapy Treatment Note PT OP: Lower Back/Lower Extremity Start: 05/12/25 13:07 Freq: Status: Active Protocol: Document 05/22/25 11:02 [facility] (Rec: 05/22/25 11:38 [facility] [id number]) Out-Patient Physical Therapy Visit Information Visit Information Visit Type Treatment Note Visit Start Time 10:51 Visit Stop Time 11:30 Visit Number 10 Number of WHEELCHAIR DRIVER Visits 0 Progress Note Due 06/12/25 OP-PT Subjective Patient Comments Patient Comments Pt saw doctor who said she was doing great and measured her passively and guessed about 122 deg flex Gym Equipment Cable Column (Body Solid) Leg Curl Details SL Resistance 3 plates, 4 plates Reps/Time 10 ea Shuttle Recovery Unilateral Squats Resistance 37# (navy band), 50# (1 navy band) Shuttle Recovery Stable Platform Reps/Time 20 reps, 6reps Gait Training Gait Activity stairs Comments 1. wt shift onto 6 in step w/o step up x10 2. manual facilitation in sitting for glute 3. step up to 6 in step R x10 4. recip up stairs 6 in x5 5. recip down 4 in steps x2 Manual Therapy Treatment Consent Patient gave verbal Yes consent for manual treatment Soft Tissue Mobilization HS Mobilization Type Cross-Friction,Rolling Intensity/Depth Moderate Body Position Supine Comments and percussion w/c/r HS stretch Scar mobility Body Location R knee Body Position Supine Comments in flex w/heel slides Physical Therapy Assessment Assessment Summary Assessment Pt did well with progression of exercises and improved gait up stairs after training and facilitation. 125 deg PROM flex today
--- NOTE | 2025-05-29 15:13 | PT.OTN ---
Current Diagnoses Unilateral primary osteoarthritis, right knee (05/29/25) Osteoarthritis of knee, unspecified (05/29/25) Physical Therapy Treatment Note PT OP: Lower Back/Lower Extremity Start: 05/12/25 13:07 Freq: Status: Active Protocol: Document 05/29/25 13:00 [facility] (Rec: 05/29/25 15:13 [facility] [id number]) Out-Patient Physical Therapy Visit Information Visit Information Visit Type Treatment Note Visit Start Time 13:02 Visit Stop Time 13:45 Visit Number 11 Number of TRACER BULLET SECTION SUPERVISOR Visits 0 Progress Note Due 06/12/25 OP-PT Subjective Patient Comments Patient Comments pt reports she wants to make sure she is doing the correct exercises. Gym Equipment Shuttle Recovery Unilateral Squats Resistance 50# (1 navy band) Reps/Time 20 Bilateral Squats Resistance 100# (3 navy bands, 1 teal) Reps/Time 20 Therapeutic Exercises Standing Exercises step down Comments 1x up/down stairs ea (4 and 6 in); mini pretend step down on ground RLE x10 lunge Reps/Minutes attempted 3x but painful Manual Therapy Treatment Consent Patient gave verbal Yes consent for manual treatment Soft Tissue Mobilization calf Body Location R Mobilization Type Rolling Body Position Supine Comments w/APs HS Mobilization Type Rolling Intensity/Depth Moderate Body Position Supine Comments HS Joint Mobilizations ankle Comments calcaneal and talar distraction AP tibia distal c/r AP talus supine and standing c/r ` innominate Joint R add c/r Physical Therapy Assessment Goals activity Short Term Goal (STG Pt will be able to walk w/ her normal gait pattern w/o ) AD. 05/12- achieved on even surfaces.- minor deviation STG Duration achieved 05/12 Assisted Goal (LTG) Pt will be able to walk at least 7000 steps/day to match prior level of function. Pt will be able to walk on uneven terrain w/o pain exceeding 2/10. 05/12-3500 steps a day LTG Duration 07/08/25 strength Short Term Goal (STG Pt will be independent in HEP. ) 05/12-achieved advancing as able STG Duration met 05/12 Computed Tomography Scanner Operator Goal (LTG) Pt will score at least a 4+/5 on BLE MMTs for improved strength and ability to walk. 05/12-improving LTG Duration 07/08/25 ROM Short Term Goal (STG Pt will measure at least 115 deg of R knee flexion for ) better ability to step into and out of the tub shower. 05/12- STG Duration 05/30/25 Assisted Goal (LTG) Pt will measure at least 130 deg of R knee flexion for better ability to use stairs and biking. LTG Duration 07/08/25 LEFS Impairment 38 Short Term Goal (STG Pt will score at least a 50 on LEFS to show improved ) function. 05/12- STG Duration 05/30/25 Computed Tomography Scanner Operator Goal (LTG) Pt will score at least a 60 on LEFS to show improved function. LTG Duration 07/08/25 Assessment Summary Assessment Pt had improved ankle mobility (needed for step down) from 2 in to wall to 3 in to wall w/manual. She does cont to have swelling post which is likely related to some of the pain w/step down. Review of HEP and PT agreed and added mini squat SL to work on step down. Physical Therapy Plan Frequency and Duration Frequency of 1-2x/week Treatment Duration of 12 treatment (weeks) Plan of Care Start 04/15/25 Date Plan of Care End 07/08/25 Date Next Visit Focus/Plan Next Note Type Treatment Note Next Visit Plan work on ability to step down, lat lunge work
--- NOTE | 2025-06-04 18:56 | PT.OTN ---
Current Diagnoses Unilateral primary osteoarthritis, right knee (06/04/25) Osteoarthritis of knee, unspecified (06/04/25) Physical Therapy Treatment Note PT OP: Lower Back/Lower Extremity Start: 05/12/25 13:07 Freq: Status: Active Protocol: Document 06/04/25 18:06 [facility] (Rec: 06/04/25 18:55 [facility] [id number]) Out-Patient Physical Therapy Visit Information Visit Information Visit Type Treatment Note Visit Start Time 15:20 Visit Stop Time 16:00 Visit Number 12 Number of CASINO DUTY MANAGER Visits 0 Progress Note Due 06/12/25 OP-PT Subjective Patient Comments Patient Comments Pt wants to go over HS stretch, and step down activity Therapeutic Exercises Supine Exercises stretch Supine Exercise Name HS/calf stretch Side right Equipment Used strap Reps/Minutes 60 sec X 2 Comments cues knee straight Standing Exercises squat Standing Exercise mini squat w/RLE and LLE on ground on wall Name Reps/Minutes 10 step down Standing Exercise mini pretend step down Name Side bilateral Reps/Minutes 2x10 Comments cues knee bend; 1x on stairs TKE Standing Exercise in calf stretch position Name Side right Manual Therapy Treatment Consent Patient gave verbal Yes consent for manual treatment Soft Tissue Mobilization HS Mobilization Type Rolling Intensity/Depth Moderate Body Position Supine Comments HS Scar mobility Comments cupping and plunger w/knee flex supine and standing Joint Mobilizations patellofemoral Joint superior/inferior, med Direction III Body Position Supine Comments R knee Taping KT Comments I strip under patella and inverted Y for patellar tracking Physical Therapy Assessment Goals activity Short Term Goal (STG Pt will be able to walk w/ her normal gait pattern w/o ) AD. 05/12- achieved on even surfaces.- minor deviation STG Duration achieved 05/12 Alf Goal (LTG) Pt will be able to walk at least 7000 steps/day to match prior level of function. Pt will be able to walk on uneven terrain w/o pain exceeding 2/10. 05/12-3500 steps a day LTG Duration 07/08/25 strength Short Term Goal (STG Pt will be independent in HEP. ) 05/12-achieved advancing as able STG Duration met 05/12 Alf Goal (LTG) Pt will score at least a 4+/5 on BLE MMTs for improved strength and ability to walk. 05/12-improving LTG Duration 07/08/25 ROM Short Term Goal (STG Pt will measure at least 115 deg of R knee flexion for ) better ability to step into and out of the tub shower. STG Duration 05/30/25 Alf Goal (LTG) Pt will measure at least 130 deg of R knee flexion for better ability to use stairs and biking. LTG Duration 07/08/25 LEFS Impairment 38 Short Term Goal (STG Pt will score at least a 50 on LEFS to show improved ) function. 05/12- STG Duration 05/30/25 Hardwood Floor Refinisher Goal (LTG) Pt will score at least a 60 on LEFS to show improved function. LTG Duration 07/08/25 Assessment Summary Assessment Pt had less knee pain with step down motion after taping. She still has tightness along scar tissue. Patellar tracking likely cause of ant knee pain w/step downs Physical Therapy Plan Frequency and Duration Frequency of 1-2x/week Treatment Duration of 12 treatment (weeks) Plan of Care Start 04/15/25 Date Plan of Care End 07/08/25 Date Next Visit Focus/Plan Next Note Type Progress Note Next Visit Plan work on ability to step down, lat lunge work
--- NOTE | 2025-06-09 17:26 | PT.OPPN ---
Current Diagnoses Unilateral primary osteoarthritis, right knee (06/09/25) Osteoarthritis of knee, unspecified (06/09/25) Physical Therapy Progress Note PT OP: Lower Back/Lower Extremity Start: 05/12/25 13:07 Freq: Status: Active Protocol: Document 06/09/25 15:20 [facility] (Rec: 06/09/25 17:26 [facility] [id number]) Out-Patient Physical Therapy Visit Information Visit Information Visit Type Progress Note Visit Start Time 15:18 Visit Stop Time 16:11 Visit Number 13 Number of COOK ICE CREAM Visits 0 Progress Note Due 07/08/25 OP-PT Subjective Patient Comments Patient Comments Pt reports she remember the knee stretch on stair, unsure of the others Hip Strength Hip Manual Muscle Testing Right Flexion (L2) 4 Good Abduction 4 Good Adduction 4 Good External Rotation 3+ Fair+ Internal Rotation 4 Good Comments extension n/t positioning Left Flexion (L2) 4+ Good+ Abduction 4+ Good+ Adduction 4 Good External Rotation 4 Good Internal Rotation 5 Normal Comments extension n/t positioning Knee Strength Knee Manual Muscle Testing Right Flexion (S2) 4 Good Extension (L3) 4 Good Comments pain w/ flex slightly Left Flexion (S2) 5 Normal Extension (L3) 5 Normal Ankle/Foot Strength Ankle and Foot Manual Muscle Testing Right Dorsiflexion (L4) 5 Normal Left Dorsiflexion (L4) 5 Normal Therapeutic Exercises Standing Exercises squat Standing Exercise mini squat w/RLE and LLE on ground on wall Name Reps/Minutes 10 Comments cues small range step down Standing Exercise mini pretend step down Name Side bilateral Equipment Used rail prn Reps/Minutes 2x10 Comments cues knee flex and small range knee flex Standing Exercise on stair (2nd) Name Side right Reps/Minutes [id number] Comments inc time for video for HEP and cues for stretch Manual Therapy Treatment Consent Patient gave verbal Yes consent for manual treatment Soft Tissue Mobilization HS Mobilization Type Rolling Intensity/Depth Moderate Body Position Supine Comments HS Scar mobility Comments cupping and plunger w/knee flex supine Joint Mobilizations tibiofemoral Comments PA tibia and femur w/APs patellofemoral Joint superior/inferior, med Direction III Body Position Supine Comments R knee Taping KT Comments 2 fan strips ant for swelling and I strip under patella for tracking Physical Therapy Assessment Goals activity Short Term Goal (STG Pt will be able to walk w/ her normal gait pattern w/o ) AD. 05/12- achieved on even surfaces.- minor deviation STG Duration achieved 05/12 Director Federal Goal (LTG) Pt will be able to walk at least 7000 steps/day to match prior level of function. Pt will be able to walk on uneven terrain w/o pain exceeding 2/10. 05/12-3500 steps a day 06/09-3500 steps a day currently LTG Duration 07/08/25 strength Short Term Goal (STG Pt will be independent in HEP. ) 05/12-achieved advancing as able STG Duration met 05/12 Director Federal Goal (LTG) Pt will score at least a 4+/5 on BLE MMTs for improved strength and ability to walk. 05/12-improving 06/09-gradually improving LTG Duration 07/08/25 ROM Short Term Goal (STG Pt will measure at least 115 deg of R knee flexion for ) better ability to step into and out of the tub shower. 05/12-107 06/09-117 STG Duration achieved 06/09 Director Federal Goal (LTG) Pt will measure at least 130 deg of R knee flexion for better ability to use stairs and biking. LTG Duration 07/08/25 LEFS Impairment 38 Short Term Goal (STG Pt will score at least a 50 on LEFS to show improved ) function. 05/12-48 06/09-n/t STG Duration 05/30/25 Correction Goal (LTG) Pt will score at least a 60 on LEFS to show improved function. LTG Duration 07/08/25 Assessment Summary Assessment Pt making progress w/ROM and strength and is encouraged to inc her biking and walking [place]. She cont to be weak in quads and HS on R and would benefit from cont PT to work on progression of mobility. Physical Therapy Plan Frequency and Duration Frequency of 1-2x/week Treatment Duration of 12 treatment (weeks) Plan of Care Start 04/15/25 Date Plan of Care End 07/08/25 Date Therapeutic Interventions Therapeutic Balance Training,Coordination Training,Gait Training, Interventions Home Exercise Program,Joint Mobilizations,Manual Therapy,Neuromuscular Re-education,Patient/Caregiver Education,Self-Care/Home Management,Soft Tissue Mobilization,Taping,Therapeutic Activities,Therapeutic Exercises Modalities Cold Pack/Ice Massage,Electric Stimulation,Infrared Therapy Next Visit Focus/Plan Next Note Type Treatment Note Next Visit Plan work on ability to step down, lat lunge work
--- NOTE | 2025-06-26 17:14 | PT.OTN ---
Current Diagnoses Unilateral primary osteoarthritis, right knee (06/26/25) Osteoarthritis of knee, unspecified (06/26/25) Physical Therapy Treatment Note PT OP: Lower Back/Lower Extremity Start: 05/12/25 13:07 Freq: Status: Active Protocol: Document 06/26/25 12:59 [facility] (Rec: 06/26/25 13:49 [facility] [id number]) Out-Patient Physical Therapy Visit Information Visit Information Visit Type Treatment Note Visit Start Time 13:01 Visit Stop Time 13:47 Visit Number 14 Number of ADJUSTER PIANO ACTION Visits 1 Progress Note Due 07/08/25 OP-PT Subjective Patient Comments Patient Comments Patient reports hurting her back Sept. 12/17 lifting a chop saw off the deck. Patient reports she is good today, yesterday was the last day of twinges; rates pain nothing. Patient reports she did 7000 steps one day and had increased swelling. Patient reports the tape helped. Patient reports she did one day of PT since the back pain. Patient descends stairs with a reciprocal pattern using 2 rails to avoid weight bearing ie very minimal to no WB R LE stance phase descending. AROM 0 to 115 post step downs. Therapeutic Exercises Standing Exercises glute med isometric Reps/Minutes one minute hold X 1 each LE Comments no improvement for balance post step down Standing Exercise 4 and 6 inch stairs B rails * also mini squat for form Name Side bilateral Reps/Minutes 7 minutes then 2 min Comments vc for buttocks back, pelvis level, VC and visual cues lunge Reps/Minutes X 6 each side Comments Verbal and visual cues stretch Standing Exercise calf gildardo and soleus on stairs HEP Name Side right Reps/Minutes 60 sec Comments verbal cues sit to stand Standing Exercise from varying seat heights Name Reps/Minutes X 4 X8 stagger stance R LE retro HEP Comments VC for hip hinge monitored for pain Manual Therapy Treatment Consent Patient gave verbal Yes consent for manual treatment Joint Mobilizations R knee Joint AP PA tibia on femur Grade IV Body Position Hooklying Reps/Duration X 10 X 3 each patellofemoral Joint superior/inferior, med Direction III Body Position Supine Comments R knee Physical Therapy Assessment Goals activity Short Term Goal (STG Pt will be able to walk w/ her normal gait pattern w/o ) AD. 05/12- achieved on even surfaces.- minor deviation STG Duration achieved 05/12 Half-Way Goal (LTG) Pt will be able to walk at least 7000 steps/day to match prior level of function. Pt will be able to walk on uneven terrain w/o pain exceeding 2/10. 05/12-3500 steps a day 06/09-3500 steps a day currently LTG Duration 07/08/25 strength Short Term Goal (STG Pt will be independent in HEP. ) 05/12-achieved advancing as able STG Duration met 05/12 Agriculture Scientist Goal (LTG) Pt will score at least a 4+/5 on BLE MMTs for improved strength and ability to walk. 05/12-improving 06/09-gradually improving LTG Duration 07/08/25 ROM Short Term Goal (STG Pt will measure at least 115 deg of R knee flexion for ) better ability to step into and out of the tub shower. 05/12-107 06/09-117 STG Duration achieved 06/09 Half-Way Goal (LTG) Pt will measure at least 130 deg of R knee flexion for better ability to use stairs and biking. LTG Duration 07/08/25 LEFS Impairment 38 Short Term Goal (STG Pt will score at least a 50 on LEFS to show improved ) function. 05/12-48 06/09-n/t STG Duration 05/30/25 Agriculture Scientist Goal (LTG) Pt will score at least a 60 on LEFS to show improved function. LTG Duration 07/08/25 Assessment Summary Assessment Patient with posterior R knee pain with 4 inch step down, anterior R knee pain with mat at lowest level for stand to sit. Dec arlyn to step down, lateral lunge, good arlyn to stagger stance sit to stand R LE retro raised seat height. Physical Therapy Plan Frequency and Duration Frequency of 1-2x/week Treatment Duration of 12 treatment (weeks) Plan of Care Start 04/15/25 Date Plan of Care End 07/08/25 Date Next Visit Focus/Plan Next Note Type Treatment Note Next Visit Plan work on ability to step down, lat lunge work
--- NOTE | 2025-06-30 12:36 | PT.OPPOC ---
Physical, Occupational & Speech Therapy At [facility] Current Diagnoses Unilateral primary osteoarthritis, right knee (06/30/25) Osteoarthritis of knee, unspecified (06/30/25) Visit Care Team Role Provider Type Emerson Boyd MD Family Provider Physician Primary Care Provider Specialty: Family Practice Address: [facility], [address], [place], [address] Email: [email or web address] Esvin Lopez MD Attending Provider Non-Staff Referring Provider Specialty: Orthopedic Surgery Address: [address] [place] [address], [address], [place], [address] Email: Plan Of Care PT OP: Lower Back/Lower Extremity Start: 05/12/25 13:07 Freq: Status: Active Protocol: Document 06/30/25 10:46 [facility] (Rec: 06/30/25 12:36 [facility] [id number]) Out-Patient Physical Therapy Visit Information Visit Information Visit Type Progress Note Visit Start Time 11:35 Visit Stop Time 12:20 Visit Number 15 Number of POKER SUPERVISOR Visits 0 Progress Note Due 07/30/25 OP-PT Subjective Patient Comments Patient Comments reports overall improving but down stairs still difficult Hip Strength Hip Manual Muscle Testing Right Flexion (L2) 4 Good Abduction 4 Good External Rotation 4 Good Internal Rotation 4 Good Knee Strength Knee Manual Muscle Testing Right Flexion (S2) 4 Good Extension (L3) 4+ Good+ Comments pain w/ flex Left Flexion (S2) 5 Normal Extension (L3) 5 Normal Therapeutic Exercises Sitting Exercises knee flexion Sitting Exercise HS curl Name Side right Equipment Used L3 Reps/Minutes 13 Standing Exercises SL Standing Exercise SL balance Name Side bilateral sidesteps Side bilateral Equipment Used L3 at ankles Reps/Minutes 15ft Comments cues posture squat Standing Exercise sit to stand Name Side bilateral Reps/Minutes 10 Comments cues slow decent stretch Standing Exercise calf gildardo and soleus on stairs HEP Name Side right Reps/Minutes 60 sec Comments verbal cues knee flex Standing Exercise on stair (2nd) Name Side right Reps/Minutes [id number] Comments cues push through foot Manual Therapy Treatment Consent Patient gave verbal Yes consent for manual treatment Soft Tissue Mobilization Scar mobility Comments MFR w/knee flex supine Physical Therapy Assessment Goals activity Short Term Goal (STG Pt will be able to walk w/ her normal gait pattern w/o ) AD. 05/12- achieved on even surfaces.- minor deviation STG Duration achieved 05/12 Shock Absorption Floor Layer Goal (LTG) Pt will be able to walk at least 7000 steps/day to match prior level of function. Pt will be able to walk on uneven terrain w/o pain exceeding 2/10. 05/12-3500 steps a day 06/09-3500 steps a day currently 06/30-just under 5k currently, one day at 7 k LTG Duration 07/30 strength Short Term Goal (STG Pt will be independent in HEP. ) 05/12-achieved advancing as able STG Duration met 05/12 Shock Absorption Floor Layer Goal (LTG) Pt will score at least a 4+/5 on BLE MMTs for improved strength and ability to walk. 05/12-improving 06/09-gradually improving 06/30-improving LTG Duration 07/30 ROM Short Term Goal (STG Pt will measure at least 115 deg of R knee flexion for ) better ability to step into and out of the tub shower. 05/12-107 06/09-117 STG Duration achieved 06/09 Shock Absorption Floor Layer Goal (LTG) Pt will measure at least 130 deg of R knee flexion for better ability to use stairs and biking. 06/30-biking consistently, stairs getting better, ROM to 118 LTG Duration 09/15 LEFS Impairment 38 Short Term Goal (STG Pt will score at least a 50 on LEFS to show improved ) function. 05/12-48 06/09-n/t STG Duration achieved 06/30 Shock Absorption Floor Layer Goal (LTG) Pt will score at least a 60 on LEFS to show improved function. 06/30-59 LTG Duration 07/08/25 Assessment Summary Assessment Pt has made good progress w/PT at this time with improved ROM and strength overall. Requires some cues w /exercises but adjusted program at this time. She still has dec quad and HS strength. Cont PT for HEP and dec pain Physical Therapy Plan Frequency and Duration Frequency of 1-2x/week Treatment Duration of 6 treatment (weeks) Plan of Care Start 06/30/25 Date Plan of Care End 08/11/25 Date Therapeutic Interventions Therapeutic Balance Training,Coordination Training,Gait Training, Interventions Home Exercise Program,Joint Mobilizations,Manual Therapy,Neuromuscular Re-education,Patient/Caregiver Education,Self-Care/Home Management,Soft Tissue Mobilization,Taping,Therapeutic Activities,Therapeutic Exercises Modalities Cold Pack/Ice Massage,Electric Stimulation,Infrared Therapy Next Visit Focus/Plan Next Note Type Discharge Summary Next Visit Plan plan for DC to HEP, adjust as neeeded Plan of Care Dates Plan of Care Start Date 06/30/25 Plan of Care End Date 08/11/25 Electronically Signed by: Aissatou Martinez, PT 06/30/25 [id number] If you are in agreement with this Plan of Care, please return a signed and dated copy. I have reviewed this Plan of Care and certify that the skilled therapy services above are required to meet the patient?s needs. Physician Signature Date Printed Name and Credentials Clinical Instructor Signature Printed Name and Credentials
--- NOTE | 2025-07-07 09:36 | PT.OPDS ---
Current Diagnoses Unilateral primary osteoarthritis, right knee (07/07/25) Osteoarthritis of knee, unspecified (07/07/25) Visit Care Team Role Provider Type Emerson Boyd MD Family Provider Physician Primary Care Provider Specialty: Family Practice Address: [address], [address], [place], [address] Email: [email or web address] Esvin Lopez MD Attending Provider Non-Staff Referring Provider Specialty: Orthopedic Surgery Address: [address] [place] [address], [address], [place], [address] Email: Visit Number Visit Number 16 Discharge Summary PT OP: Lower Back/Lower Extremity Start: 05/12/25 13:07 Freq: Status: Active Protocol: Document 07/07/25 07:32 [facility] (Rec: 07/07/25 09:36 [facility] [id number]) Out-Patient Physical Therapy Visit Information Visit Information Visit Type Discharge Summary Visit Start Time 07:33 Visit Stop Time 08:13 Visit Number 16 Number of FENCE MAKER Visits 0 Progress Note Due 07/30/25 OP-PT Subjective Patient Comments Patient Comments has been doing exercises. stairs better. Therapeutic Exercises Sitting Exercises knee ext Sitting Exercise LAQ Name Side right Equipment Used L3 Reps/Minutes X 5 Comments for position of band knee flexion Sitting Exercise HS curl Name Side right Equipment Used L3 Reps/Minutes 8 Standing Exercises SL Standing Exercise SL balance Name Side bilateral sidesteps Side bilateral Equipment Used L3 at ankles Reps/Minutes 12ft Comments cues posture & tying tight squat Standing Exercise sit to stand Name Side bilateral Reps/Minutes 5 Comments cues slow decent step down Standing Exercise 6 in stairs recip Name Side bilateral Reps/Minutes 1x stretch Standing Exercise calf gildardo and soleus on stairs HEP Name Side right Reps/Minutes 30 sec Comments verbal cues knee flex Standing Exercise on stair (2nd) Name Side right Reps/Minutes 30 sec Comments cues push through foot heel raises Standing Exercise on step Name Side bilateral Reps/Minutes 5 Manual Therapy Treatment Consent Patient gave verbal Yes consent for manual treatment Soft Tissue Mobilization Scar mobility Comments MFR w/knee flex supine Physical Therapy Assessment Goals activity Short Term Goal (STG Pt will be able to walk w/ her normal gait pattern w/o ) AD. 05/12- achieved on even surfaces.- minor deviation STG Duration achieved 05/12 Picker Machine Operator Goal (LTG) Pt will be able to walk at least 7000 steps/day to match prior level of function. Pt will be able to walk on uneven terrain w/o pain exceeding 2/10. 05/12-3500 steps a day 06/09-3500 steps a day currently 06/30-just under 5k currently, one day at 7 k LTG Duration 07/30 strength Short Term Goal (STG Pt will be independent in HEP. ) 05/12-achieved advancing as able STG Duration met 05/12 Mcfp Goal (LTG) Pt will score at least a 4+/5 on BLE MMTs for improved strength and ability to walk. 05/12-improving 06/09-gradually improving 06/30-improving LTG Duration 07/30 ROM Short Term Goal (STG Pt will measure at least 115 deg of R knee flexion for ) better ability to step into and out of the tub shower. 05/12-107 06/09-117 STG Duration achieved 06/09 Picker Machine Operator Goal (LTG) Pt will measure at least 130 deg of R knee flexion for better ability to use stairs and biking. 06/30-biking consistently, stairs getting better, ROM to 118 LTG Duration 09/15 LEFS Impairment 38 Short Term Goal (STG Pt will score at least a 50 on LEFS to show improved ) function. 05/12-06/09-n/t STG Duration achieved 06/30 Mcfp Goal (LTG) Pt will score at least a 60 on LEFS to show improved function. 06/30-59 LTG Duration 07/08/25 Assessment Summary Assessment Pt having less pain with stairs and did well with HEP with very min cues today. At this time, pt ready to DC to HEP to continue to build strength and balance and endurance. Pt has almost met goals so will continue to work towards those with HEP Physical Therapy Plan Discharge Physical Therapy Discharge Comments goals mostly met and pt indep w/HEP
== END 2025-07-16 12:08 | disposition home or self-care (01) ==
LOC: PHYS 07:30
PROVIDERS: Family Provider Family Medicine; PCP Family Medicine; Referring Provider Orthopaedic Surgery; Visit Provider Orthopaedic Surgery
DX: M17.9 Osteoarthritis of knee, unspecified (principal); M17.11 Unilateral primary osteoarthritis, right knee
CPT/HCPCS: 97110; 97116; 97140; 97162; 97535